=== PATIENT | female | born 1955 | race African-American/Black ===

== ENCOUNTER → 2020-12-08 07:43 | Outpatient (REF) | payer OTHER, SELFPAY ==
--- NOTE | 2020-12-08 07:52 | CA_ITS ---
Transthoracic Echocardiogram Patient (Last, First, Middle): Ignacia Abdul, Gender: Female Date of : 1955 Age: 65 Procedure Date: 12/08/2020 Procedure Type: Transthoracic Echocardiogram Location: OP Height: 167.64 cm Weight: 115.21 kg BSA: 2.21 m2 Heart Rate: bpm BP: 120 / 80 mmHg Hris Developer: GERALDINE Referring MD: Angel Glasgow MD Symptoms: I48.0 PAF Study Quality: Fair/contrast ECG Rhythm: Sinus Conclusions: - The left ventricular systolic function is normal. The visually estimated ejection fraction is between 60-65%. - There is mild calcification of the aortic valve. - There is mild tricuspid valve regurgitation. - Mild pulmonary hypertension is present. Findings Procedure Information Contrast agent, definity, is being given per protocol without apparent complications. Left Ventricle Normal left ventricular cavity size. There is normal left ventricular wall thickness. The left ventricular systolic function is normal. The visually estimated ejection fraction is between 60-65%. There is no evidence of regional wall motion abnormalities. Diastolic function is normal for age. Right Ventricle Normal right ventricular cavity size and systolic function. Atria The left atrium is normal in size. The right atrium is normal in size. Aortic Valve There is a normal trileaflet aortic valve. There is mild calcification of the aortic valve. There is no aortic valve stenosis. There is no aortic valve regurgitation. Mitral Valve The mitral valve appears normal. There is no mitral valve regurgitation. There is no mitral valve stenosis. Pulmonic Valve The pulmonic valve was not well visualized. Tricuspid Valve The tricuspid valve was not well visualized. There is mild tricuspid valve regurgitation. The right ventricular systolic pressure is 47 mmHg. Mild pulmonary hypertension is present. Great Vessels The aortic annulus, sinuses of valsalva, and asc aorta are normal in size. Venous The inferior vena cava was not well visualized. Pericardium/Pleural There is no evidence of pericardial effusion. Prior Study Comparison No prior study available for comparison. Measurements 2D Linear Measurements IVSd: 0.98 0.6-0.9/0.6-1.0 cm LVIDd: 4.35 3.9-5.3/4.2-5.9 cm LVIDd Index: 1.97 2.4-3.2/2.2-3.1 cm/m2 LVIDs: 2.60 2.0-3.6 cm LVPWd: 1.00 0.7-1.1 cm Ao Root: 2.80 2.1-3.5 cm LA Diam: 3.60 2.7-3.8/3.0-4.0 cm LAIDs Index: 1.63 1.5-2.3 cm/m2 LV Mass: 177.55 67-162/88-224 g LV Mass Index: 80.34 43-95/49-115 g/m2 LVOT Diam: 2.00 3.0+(-)1.3 cm Mitral Valve MV Pk E: 0.78 MV PK A: 0.68 MV Decel Time: 287.00 E/A: 1.10 E'Lateral: 6.09 E'Medial: 6.64 E/E' Med: 11.70 E/E' Lat: 12.80 PHT: 84.00 MVA PHT: 2.62 Decel Hunt: 2.70 Aortic Valve AoV Pk Albino: 1.10 AoV Mn Albino: 0.84 AoV VTI: 0.25 AoV Pk Grad: 5.00 Aov Mn Grad: 3.00 GIANCARLO Cont.VTI: 3.11 LVOT LVOT Pk Albino: 0.86 LVOT Mn Albino: 0.56 LVOT VTI: 0.25 LVOT Pk Grad: 3.00 LVOT Mn Grad: 1.00 LVOT Diam: 2.00 LVOT Area: 3.14 Diastolic Function MV Pk E: 0.78 MV Pk A: 0.68 E/A: 1.10 E'Medial: 6.64 E/E' Med: 11.70 E' Laterial: 6.09 E/E' Lat: 12.80 Tricuspid Valve TR Pk Albino: 3.31 TR Pk Grad: 44.00 RA Press: 3.00 RVSP: 47.00 Great Vessels Aorta Ao Root-2D: 2.80 2.0-3.7 cm Ao Asc: 2.90 2.1-3.4 cm Ao Arch: 2.50 Updated in Other Vendor System with Status of Final Jose Angel Mackey MD electronically signed on 12/09/2020 11:59:24 AM with status of Final
== END ==
LOC: HO.CARD 07:43
PROVIDERS: Visit Provider Internal Medicine Cardiovascular Disease
DX: I48.0 Paroxysmal atrial fibrillation (principal)
CPT/HCPCS: 93306; Q9957

== ENCOUNTER 2024-09-17 14:01 | Outpatient (AMB) | payer MEDICARE, MEDICAID, SELFPAY ==
--- NOTE | 2024-09-17 14:04 | A.OFFPC_ITS ---
Vital Signs 09/17/24 14:05 Height 5 ft 4 in Weight 280 lb BMI 48.1 BP 130/70 Blood Pressure Location Lt brachial Position Sitting Pulse 48 L Pulse Source Pulse Oximeter Temp 96.9 F Temp Source Temporal Artery Scan Pulse Oximetry (%) 86 L Oxygen Delivery Method Nasal Cannula Intake Visit Reasons: establish care Dr Butler Intake Note: Patient is a new patient here to establish care for DM, Chronic respiratory failure, Depression, Insomnia, Constipation, HLD, Hyper-hypo glycemia and Dysphagia . Transferring care from Dr Arreguin ([facility]). Medical records have been requested and have not received. 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 ] melatonin 10 mg PO BEDTIME PRN ondansetron 4 mg PO Q8H PRN Tobacco use date assessed: 09/17/24 Fall risk assessment: No Falls in past year Last assessed Fall Risk: 09/17/24 Dental Screening Dental Screen Date: 09/17/24 Did you have a dental visit in the last 12 months?: Yes Did you have a dental problem in the last 6 months where you did not have access to dental care?: No Was dental information given to patient?: Patient has dentist (Dentures) HPI establish care Dr Butler HPI Details 69-year-old female coming to the office for the 1st time. Presenting with concerns primarily revolving around the management of her diabetes mellitus and worsening sleep disorder. She has a history of insulin- dependent diabetes mellitus requiring modification of her sliding-scale insulin regimen due to changes made during hospitalization. Depression is noted, significantly affecting her sleep pattern, compounded by difficulty maintaining regular use of sleep aids such as eye masks and medication like melatonin and trazodone. 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 Aspiration issues due to swallowing difficulties require consideration, necessitating evaluation with a barium swallow and dietary modification to a pureed diet. Physical symptoms such as syncope and muscle atrophy further complicate her health management plan. 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 1. Little interest or pleasure in doing things: not at all 2. Feeling down, depressed, or hopeless: several days 3. Trouble falling or staying asleep, or sleeping too much: nearly every day 4. Feeling tired or having little energy: nearly every day 5. Poor appetite or overeating: several days 6. Feeling bad about yourself - or that you are a failure or have let yourself or your family down: several days 7. Trouble concentrating on things, such as reading the newspaper or watching television: several days 8. Moving or speaking so slowly that other people could have noticed. Or the opposite - being so fidgety or restless that you have been moving around a lot more than usual: several days 9. Thoughts that you would be better off or of hurting yourself in some way: several days Total score: 12 Depression Screening Interpretation: Positive Depression Screening Follow-up: Existing condition and In treatment Depression Screening Done: Yes Source: Developed by Drs. Nestor Langston, Mahnaz Whelan, Sina White and colleagues, with an educational brad from [employer]. Thrive Questionnaire Date Thrive assessed: 09/17/24 I am a: Parent/Caregiver What is your living situation today?: I have a steady place to live Within the past 12 months, did the food you bought not last and you didn't have the money to get more?: Never true Within the past 12 months, did you worry whether your food would run out before you got money to buy more?: Never true Do you have trouble paying for medicines?: I choose not to answer this question Do you have trouble getting transportation to medical appointments?: Yes Do you have trouble paying your heating and electricity bill?: Yes Do you have trouble taking care of your child, family member or friend?: No Do you have trouble with day-to-day activities such as bathing, preparing meals, shopping, managing finances, etc.?: Yes Are you currently unemployed and looking for a job?: Yes Are you interested in more education?: No Please select the resources that you would like help with: None Currently or been in a relationship where the following occur: I choose not to answer THRIVE Score: 2 AUDIT C Alcohol Use Questionnaire (AUDIT-C) 1. How often do you have a drink containing alcohol?: Never Total Score: 0 JAMIE-7 AMB Questionnaire JAMIE-7 Date JAMIE - 7 assessed: 09/17/24 Feeling nervous, anxious, or on edge: 1 = Several days Not being able to stop or control worryin = Several days Worrying too much about different things: 1 = Several days Trouble relaxin = Several days Being so restless that it is hard to sit still: 1 = Several days Becoming easily annoyed or irritable: 1 = Several days Feeling afraid as if something awful might happen: 1 = Several days Total JAMIE-7 score (0-4 normal; 5-9 mild; 10-14 moderate; 15-21 severe): 7 Source: Developed by Drs. Nestor Langston, Mahnaz Whelan, Sina White and colleagues, with an educational brad from [employer]. JAMIE-7 Assessment Billing JAMIE-7 Assessment Tool: JAMIE-7 Assessment 20722 Review of Systems Const Denies body aches, Denies chills, Denies fever(s), Denies headache(s) and Denies poor appetite Eyes Reports no additional complaints ENT Reports dysphagia, Denies dizziness, Denies headache(s) and Denies odynophagia Card Denies chest pain, Denies lightheadedness and Reports dyspnea Resp Denies cough and Reports dyspnea GI Denies abdominal pain, Reports constipation, Reports dysphagia, Denies diarrhea, Denies nausea, Denies odynophagia and Denies vomiting Reports no additional complaints Musc Reports no additional complaints and Denies abnormal gait Skin/Breast Reports system reviewed and no additional complaints, except as documented Neuro Denies abnormal gait, Denies dizziness and Denies headache(s) Psych Reports no additional complaints Physical exam (Primary Care) Vital Signs: Last Vital Signs Temp 96.9 F 09/17/24 14:05 Pulse 48 L 09/17/24 14:05 BP 130/70 09/17/24 14:05 Pulse Ox 86 L 09/17/24 14:05 Oxygen Delivery Method Nasal Cannula 09/17/24 14:05 BMI result Body Mass Index 48.1 Tobacco/Smoking Status: Tobacco use Status Tobacco use date assessed 09/17/24 09/17/24 14:07 Patient Tobacco Use Status Never used Tobacco 09/17/24 14:07 e-Cigarette/Vaping Use Never Used 09/17/24 14:07 PHQ-9: PHQ-9 Score PHQ-9: Total score 12 09/18/24 09:47 Depression Screening Interpretation: Positive Depression Screening Follow-up: Existing condition and In treatment Thrive Assessment: Date of Thrive Assessment Date Thrive assessed 09/17/24 09/17/24 14:07 Currently or been in a relationship where the following occur: I choose not to answer Advance Care Planning discussion: Completed/Scanned Date of discussion: 09/18/24 Who was present: patient, myself and 2 staff members Forms completed: MOLST Time spent: 1-15 minutes, not on file Actual minutes spent: 5 Const General: cooperative, healthy appearing, comfortable and no acute distress Orientation/consciousness: patient oriented x3 HENMT Head: Yes normocephalic Ears: hearing grossly normal bilaterally General nose exam: Normal external nose present Eyes General: appearance normal, both eyes and all related structures Conjunctivae: conjunctivae normal Neck Neck: Yes full ROM and Yes no lymphadenopathy Resp Effort & Inspection: normal respiratory effort Auscultation: clear to auscultation bilaterally, no crackles, no rales, no rhonchi and no wheezes Cardio Rate: regular rate Rhythm: regular rhythm Skin General skin exam: no rashes or lesions noted Neuro General: patient oriented x3 Gait exam (Neuro): Normal gait present Extrem General: Yes normal to inspection, Yes full ROM and No edema Psych Affect: normal affect Attitude: cooperative Insight: Good insight present (Psych) Judgement: Good judgement present (Psych) Results AMB Hemoglobin A1c AMB Hemoglobin A1c 6.5 % Last Edit by NANCIE Cuello on 09/17/24 14:38 Results Reviewed Results Reviewed: Laboratory Last Values Hgb A1c (Clinic) 6.5 % (4.0-6.0) H 09/17/24 14:31 Coding Level of Care Code New Pt Level 4 (68770) Diagnoses Constipation K59.00 Hyperlipidemia E78.5 Dysphagia R13.10 Chronic respiratory failure J96.10 Insomnia G47.00 Depression F32.A Diabetes mellitus E11.9 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 Continue to use laxatives as needed for constipation. (2) Hyperlipidemia: Code(s): E78.5 - Hyperlipidemia, unspecified Category: Medical Plan: Avoid foods that are high in cholesterol such as red meat, fried foods, eggs and baked goods. Triglyceride goal of less than 150 and LDL goal of less than 100. Continue on atorvastatin 40. Ordered for updated blood work (3) Dysphagia: Code(s): R13.10 - Dysphagia, unspecified Category: Medical Plan: Patient having chronic dysphagia has been worsening over the last several months. Engineer Systems states she is on a pureed diet at home requesting barium swallow. 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 Continue to follow with pulmonology and supplemental oxygen at this time (5) Insomnia: Code(s): G47.00 - Insomnia, unspecified Category: Medical Plan: Patient having insomnia recommend increase in melatonin 10 mg nightly and follow up with psychiatrist. (6) Depression: Code(s): F32.A - Depression, unspecified Category: Medical Plan: Currently following with a psychiatrist who is handling her psych medications. Continue to follow with psych declines counselor today. (7) Diabetes mellitus: Code(s): E11.9 - Type 2 diabetes mellitus without complications Category: Medical Plan: Decrease the amount of carbohydrates such as pasta, bread, rice, and potatoes and limit the amount of sweets. Although fruits are generally healthy they should be eaten in moderation as they are still high in sugar. Hemoglobin A1c goal of less than 7%. A1c at goal today continue on current medication regimen. Adjust sliding scale insulin dose to start at 200 BGL at request of class c truck driver as the patient has fluctuating blood sugars and increase to 200 will prevent lows (8) Hemiplegia of nondominant side due to acute cerebrovascular accident (CVA): Comment: about 2020 Code(s): I63.9 - Cerebral infarction, unspecified; G81.90 - Hemiplegia, unspecified affecting unspecified side Category: Medical Plan: Patient had CVA many years ago as result has hemiplegia the left side. Currently ambulates using a power wheelchair. Continue to follow with neurologist. (9) Afib: Code(s): I48.91 - Unspecified atrial fibrillation Category: Medical Plan: Currently on rate control with carvedilol and anticoagulated with apixaban. Continue to follow with residential collections's Plan For this patient, I have planned to adjust the insulin regimen to commence at 200 mg/dL to help better control blood glucose levels, avoiding unnecessary low insulin coverages. Sleep management will be refined with an increased melatonin dose, with further trazodone modifications contingent upon psychiatric evaluations. A barium swallow has been ordered to evaluate and mitigate aspiration risks effectively. Referrals to specialists in gastroenterology and podiatry will address other health maintenance needs. Prescriptions for essential medications and devices, including Zofran and compression stockings, have been sent to the pharmacy, targeting specific symptomatic concerns. Additionally, a follow-up in three months will be utilized to assess A1c levels, medication effects, and overall well-being. Additionally we completed the patient's MOLST form in the office today. Each prompt was explained in detail to the patient and she made her selections independently and without coercion. She has a good understanding of the implications of her decisions and has the capacity to make these decisions on her own. The forms were completed and signed today and scanned into her chart. This note was constructed using voice recognition software. While every effort has been made to ensure accuracy and co founder, still areas may have been included sometimes these areas may affect the content or meeting of the given symptoms. Total time spent caring for the patient today was 30 minutes. This includes time spent before the visit reviewing the chart, time spent during the visit, and time spent after the visit and documentation. Patient was informed and verbally consented to the use of an ambient scribe for clinic note documentation during this visit. 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 Referral Z12.4 - Encounter for screening for malignant neoplasm of cervix Gastroenterology Referral R13.10 - Dysphagia, unspecified, Z12.11 - Encounter for screening for malignant neoplasm of colon Medications: New ondansetron 4 mg PO Q8H PRN 10 tabs 0RF nausea and vomiting blood sugar diagnostic (Contour Next Test Strips) As directed to check blood sugars TID 100 ea 2RF fluoxetine 20 mg PO DAILY 30 caps 0RF fluoxetine 40 mg PO DAILY 30 caps 0RF trazodone 100 mg PO BEDTIME 30 tabs 0RF sodium phosphates 19-7 gram/118 mL (Fleet Enema) 118 mL FL DAILY PRN 133 mL 0RF constipation cholecalciferol (vitamin D3) 125 mcg PO DAILY 30 tabs 0RF furosemide 20 mg PO DAILY 30 tabs 0RF losartan 50 mg PO DAILY 30 tabs 0RF omeprazole 20 mg PO DAILY 30 tabs 0RF albuterol sulfate 90 mcg/actuation 2 puffs inhalation BID PRN 8.5 grams 0RF shortness of breath or wheezing umeclidinium-vilanterol 62.5-25 mcg/actuation (Anoro Ellipta) 1 inh inhalation DAILY 60 ea 0RF melatonin 10 mg PO BEDTIME PRN 90 caps 0RF sleep [compression stockings] As directed. 1 ea 0RF carvedilol must administer with a meal/food 25 mg PO BID 60 tabs 0RF magnesium hydroxide (Milk Of Magnesia Concentrated) 5 mL PO BEDTIME PRN 1,000 mL 0RF constipation bisacodyl 10 mg FL DAILY PRN 30 ea 0RF constipation atorvastatin 40 mg PO BEDTIME 30 tabs 0RF apixaban (Eliquis) 5 mg PO BID 60 tabs 0RF alum-mag hydroxide-simeth 200-200-20 mg/5 mL (Yamini-Lanta) administer between meals and at bedtime 30 mL PO QID PRN 3,000 mL 0RF indigestion insulin lispro (Humalog KwikPen (U-100) Insulin) 1 sliding scale dose subcut USEASDIRECTD 15 mL 0RF insulin glargine (Lantus Solostar U-100 Insulin) 30 units (0.3 mL) subcut BEDTIME 15 mL 0RF polyethylene glycol 3350 17 grams PO DAILY 238 grams 0RF dextrose (Dex4 Glucose) prn 2x daily/ 15 mins apart 33 grams PO BID 198 grams 0RF acetaminophen ER (Tylenol 8 Hour) 650 mg PO Q6H PRN 120 tabs 0RF pain sennosides (senna) 17.2 mg (2 x 8.6 mg) PO BEDTIME 60 tabs 0RF dulaglutide (Trulicity) 4.5 mg (0.5 mL) subcut QWEEK 2 mL 0RF albuterol sulfate 2.5 mg (3 mL) inhalation Q4-6H PRN 75 mL 0RF shortness of breath or wheezing
[2024-09-17 14:05] VITALS: BP 130/70; PULSE 48; TEMP 36.1; O2SAT 86; BMI 48.1
== END 2024-09-17 15:03 | disposition home or self-care (01) ==
LOC: HO.HMCH 14:02
PROVIDERS: PCP Internal Medicine
DX: E11.9 Type 2 diabetes mellitus without complications (principal)

== ENCOUNTER → 2024-09-17 14:01 | Outpatient (BNVA) | payer MEDICARE, MEDICAID, SELFPAY | PROVIDERS: PCP Internal Medicine | DX: K59.00 Constipation, unspecified (principal); E78.5 Hyperlipidemia, unspecified; R13.10 Dysphagia, unspecified; E11.9 Type 2 diabetes mellitus without complications; F32.A Depression, unspecified; J96.10 Chronic respiratory failure, unspecified whether with hypoxia or hypercapnia; I63.9 Cerebral infarction, unspecified | CPT/HCPCS: 83036; 96127; 99202 ==

== ENCOUNTER 2024-10-17 11:54 | Outpatient (REF) | payer MEDICARE, MEDICAID, SELFPAY ==
[2024-10-17 12:06] LABS: Appearance Urine Clear; Color Urine Yellow; Glucose Urine UA Negative (Negative); Leukocyte Esterase Urine Large (3+) (Negative); Nitrite Urine Negative (Negative); PH 5.5 (5.0-9.0); Specific Gravity - Urine 1.015 (1.005-1.025); UMIC TRIGGER UACC YES; Urine Blood Small (1+) (Negative); Urine Ketones Negative (Negative); Urine Protein Negative (Neg-Trace)
[2024-10-17 12:16] LABS: Bacteria Urine Trace (None Seen); Hyaline Casts Urine 0-2 /LPF (0-2); Squamous Epithelial Cell Urine 0-2 /HPF (0-2); UACC Culture Trigger YES; WBC Urine 21-50 /HPF (0-5)
--- OUTSIDE RECORDS SUMMARY | 2024-10-17 14:21 | XMS_ITS | Clinical Summary ---
Author Organization [address] [facility] Address [address] [place] [address] Phone Care Team Providers Care Bottom Finisher Name Role Phone Bettie Espinal MD Primary Care Provider Social History Tobacco Use Types Packs/Day Years Used Date Smoking Tobacco: Never Assessed Comments Unknown Sex and Gender Information Value Date Recorded Sex Assigned at Not on file Legal Sex Female 6:08 AM EST Gender Identity Not on file Sexual Orientation Not on file Plan of Treatment Health Maintenance Due Date Last Done Comments Breast Cancer Screening 1955 Diabetes: Annual GFR (Glomer ular Filtration Rate) 1955 Diabetes: Annual Foot Exam 01/16/1964 Diabetes: Annual Retina Eye Exam 01/16/1964 DTaP,Tdap,and Td Vaccines (1 - Tdap) 1973 Pneumococcal Vaccine: 50+ Ye ars (1 of 2 - PCV) 1973 Zoster Vaccines (1 of 2) 01/16/2004 RSV Immunization Adult Patie nts (1 - Risk 60-74 years 1-dose series) 2014 Cholesterol Screening (Lipid Panel) 05/30/2022 Colorectal Cancer Screening: Colonoscopy 05/30/2022 Depression Screening 05/30/2022 Falls Risk Assessment 05/30/2022 Hepatitis C Screening 05/30/2022 Medicare Annual Wellness Visit 05/30/2022 Osteoporosis Screening (Bone Density Screening) 05/30/2022 Social Influencers of Health Screening 05/30/2022 COVID-19 Vaccine ( - 2023-2 5 season) 2024 Diabetes: Annual Urine Albumin-Creatinine Ratio (uACR) 08/20/2024 Diabetes: Blood Sugar Contro l Test (HGBA1C) 08/20/2024 Influenza Vaccine (Season Ended) 2025 HIB Vaccines Aged Out No longer eligi ble based on patient's age to complete this topic HPV Vaccines Aged Out No longer eligi ble based on patient's age to complete this topic Hepatitis A Vaccines Aged Out No long er eligible based on patient's age to complete this topic Hepatitis B Vaccines Aged Out No long er eligible based on patient's age to complete this topic IPV Vaccines Aged Out No longer eligi ble based on patient's age to complete this topic MMR Vaccines Aged Out No longer eligi ble based on patient's age to complete this topic Meningococcal ACWY Vaccine Aged Out N o longer eligible based on patient's age to complete this topic Meningococcal B Vaccine Aged Out No l onger eligible based on patient's age to complete this topic RSV Immunization Patients Un jarvis 20 months Aged Out No longer eligible b ased on patient's age to complete this topic Varicella Vaccines Aged Out No longer eligible based on patient's age to complete this topic Insurance MEDICARE [place]ICAID - [place] Care Teams Bottom Finisher Relationship Specialty Start Date End Date Bettie Espinal MD [address] [place] [phone] PCP - General Internal Medicine 08/20/24
== END 2024-10-17 11:55 | disposition home or self-care (01) ==
LOC: HO.LNP 11:54
PROVIDERS: Visit Provider Internal Medicine
DX: R39.9 Unspecified symptoms and signs involving the genitourinary system (principal)
CPT/HCPCS: 81001; 81003; 87086

== ENCOUNTER 2024-12-13 12:22 | Emergency (ER) | payer MEDICARE, MEDICAID, SELFPAY ==
--- NOTE | ~2024-12-13 | XR_ITS ---
EXAMINATION: XR KNEE, LEFT CLINICAL INFORMATION: fall, left knee pain COMPARISON: None available. TECHNIQUE: Four views of the left knee. FINDINGS: Elongated oval ossification is present in the soft tissues medial to the medial femoral condyle. There is osteopenia. There are marginal osteophytes involving patella, trochlea, and the tibial plateau. There is possibly an ossified intra-articular body in the posterior medial joint. There is mild narrowing of the medial joint space. There is no joint effusion. Vascular calcifications are evident in the distal femoral and proximal popliteal artery. XR/XR knee LT 4V IMPRESSION: Mild osteoarthritis. Osteopenia. Possible ossified intra-articular body in the posterior medial joint compartment. MCL ossification is most consistent with changes related to a remote sprain. Electronically signed by: Geovanni Whiting MD 12/13/2024 01:34 PM EDT
[2024-12-13 12:45] VITALS: BP 132/84; BP 181/83; PULSE 68; PULSE 80; RESP 16; TEMP 36.7; O2SAT 95; O2SAT 96; BMI 48.5
--- NOTE | 2024-12-13 12:55 | ED_ITS ---
HPI - Extremity Injury (Lower) General Chief Complaint: Extremity Injury, Lower Stated Complaint: LLE PAIN OR DAYS,FROM [facility] PER EMS Time Seen by Provider: 12/13/24 12:36 Source: patient, family (Caregiver) and EMS Mode of arrival: EMS Limitations: no limitations History of Present Illness ED Provider: DR. 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 Patient declined any other injuries and only complaint is left knee pain. No fever, no chills. Related Data Home Medications ?Medication ?Instructions ?Recorded ?Confirmed dulaglutide 4.5 mg/0.5 mL 4.5 mg subcut FR 12/13/24 subcutaneous pen injector (Trulicity) Previous Rx's ?Medication ?Instructions ?Recorded albuterol sulfate 2.5 mg/3 mL 2.5 mg (3 mL) inhalation Q4-6H PRN 09/17/24 (0.083 %) solution for nebulization shortness of breat h or wheezing #75 mL albuterol sulfate 90 mcg/actuation 2 puff inhalation B ID PRN 09/17/24 aerosol inhaler shortness of breath or wheez ing #8.5 grams blood sugar diagnostic (Contour #100 ea 09/17/24 Next Test Strips) compression stockings #1 ea 09/17/24 fluoxetine 20 mg capsule 20 mg PO DAILY #30 caps 08/26 10/19 fluoxetine 40 mg capsule 40 mg PO DAILY #30 caps 08/26 10/19 insulin lispro 100 unit/mL 1 sliding scale dose subcut 09/17/24 subcutaneous pen (Humalog KwikPen USEASDIRECTD #15 mL (U-100) Insulin) melatonin 10 mg capsule 10 mg PO BEDTIME PRN sleep # 90 caps 09/17/24 ondansetron 4 mg disintegrating 4 mg PO Q8H PRN nausea and 09/17/24 tablet vomiting #10 tabs trazodone 100 mg tablet 100 mg PO BEDTIME #30 tabs 0 09/17/24 umeclidinium 62.5 mcg-vilanterol 1 inh inhalation ANTONIO Y #60 ea 09/17/24 25 mcg/actuation powdr for inhalation (Anoro Ellipta) acetaminophen 650 mg 650 mg PO Q6H PRN pain #120 tabs 09/18/24 tablet,extended release (Tylenol 8 Hour) aluminum-mag hydroxide-simethicone 30 ml PO QID PRN in digestion 09/18/24 200 mg-200 mg-20 mg/5 mL oral susp #3,000 mL (Yamini-Lanta) bisacodyl 10 mg rectal suppository 10 mg [place] DAILY PRN constipation 09/18/24 #30 ea cholecalciferol (vitamin D3) 125 125 mcg PO DAILY #30 tabs 09/18/24 mcg (5,000 unit) tablet magnesium hydroxide 2,400 mg/10 mL 5 ml PO BEDTIME PRN constipation 09/18/24 oral suspension (Milk Of Magnesia #1,000 mL Concentrated) omeprazole 20 mg tablet,delayed 20 mg PO DAILY #30 tab s 09/18/24 release polyethylene glycol 3350 17 17 g PO DAILY #238 grams 0 09/18/24 gram/dose oral powder sodium phosphates 19 gram-7 118 ml [place] DAILY PRN consti pation 09/18/24 gram/118 mL enema (Fleet Enema) #133 mL dextrose 15 gram/32 mL oral gel 15 g (32 mL) PO Q15M P RN 09/19/24 packet (TRUEplus Glucose) hypoglycemia #32 mL insulin degludec 100 unit/mL (3 30 unit (0.3 mL) subcu t BEDTIME 09/19/24 mL) subcutaneous pen (Tresiba #15 mL FlexTouch U-100 insulin) STRAIGHT Catheter Fr 14 #1 ea 10/16/24 Prevail Bariatric briefs #300 ea 11/30/24 apixaban 5 mg tablet (Eliquis) 5 mg PO BID #60 tabs atorvastatin 40 mg tablet 40 mg PO BEDTIME #30 tabs carvedilol 25 mg tablet 25 mg PO BID #60 tabs furosemide 20 mg tablet 20 mg PO DAILY #30 tabs 11/25 01/18 losartan 50 mg tablet 50 mg PO DAILY #30 tabs 11/25 01/18 sennosides 8.6 mg tablet (senna) 17.2 mg (2 x 8.6 mg) PO BEDTIME 12/11/24 #60 tabs Allergies Allergy/AdvReac Type Severity Reaction Status Date / Time lisinopril Allergy Intermediate Unknown Verified 12/13/24 12:50 oxycodone Allergy Intermediate Unknown Verified 12/13/24 12:50 Review of Systems 2 Review of Systems: All other systems are reviewed and are negative Constitutional: Reports as per HPI and Reports no additional constitutional complaints Eyes: Reports as per HPI and Reports no additional eye complaints Reports system reviewed and no additional complaints, except as documented Cardiovascular: Reports as per HPI and Reports no additional cardiovascular complaints Respiratory: Reports as per HPI and Reports no additional respiratory complaints Gastrointestinal: Reports as per HPI and Reports no additional gastrointestinal complaints Genitourinary: Reports no additional female genitourinary complaints Musculoskeletal: Reports no additional musculoskeletal complaints Skin/Breast: Reports system reviewed and no additional complaints, except as docu Psychiatric: Reports no additional psychiatric complaints Endocrine: Reports no additional endocrine complaints Hematologic/Lymphatic: Reports no additional hematologic/lymphatic complaints Allergic/Immunologic: Reports no additional allergic/immunologic complaints Reports system reviewed and no additional complaints, except as documented and Reports Abnormal speech present [facility] Past Medical History Medical History Left knee pain Surgical History History of cholecystectomy History of hysterectomy Social History Social History Housing: Other (correction) Unable to assess alcohol history related to: Refusing to respond Alcohol intake: never Patient Tobacco Use Status: Never used Tobacco e-Cigarette/Vaping Use: Never Used Second Hand Smoke Exposure: No Advance Directives: Yes Advance Directives Information Provided: No Advance Directives on File: No Do you have a plan to hurt others: No Plan service: No Current occupational status: disabled Cognitive needs: Yes (wheelchair) Hearing needs: No Vision needs: Yes (Reading Glasses) Physical Exam 2 Vital Signs: Vital Signs: Last Vital Signs Temp 98.0 F 12/13/24 12:45 Pulse 68 12/13/24 12:45 Resp 16 12/13/24 12:45 BP 181/83 H 12/13/24 12:45 Pulse Ox 96 12/13/24 12:45 O2 Del Method Nasal Cannula 12/13/24 12:45 Oxygen Flow Rate 2.5 12/13/24 12:45 BMI result Body Mass Index 48.5 Vital signs have been reviewed and appear to be correct. Blood pressure elevated. Heart rate normal. Respiratory rate normal. Temperature normal. Oxygen saturation normal. Appearance: Alert. Oriented X3. No acute distress. Head: Normal external exam. Normocephalic. Atraumatic. No Lem[place] signs noted. No raccoon eyes noted Eyes: PERRLA. EOMI. Conjunctiva and sclera normal. Eyelids normal. ENT: TM's Normal. Pharynx normal. Uvula midline. Moist mucous membranes. No trismus noted. No drooling noted. No muffled voice noted. Neck: Normal inspection. Neck supple. FROM. No adenopathy. Thyroid Normal. No meningeal signs. No neck mass noted. CVS: Normal heart rate and rhythm. Heart sound normal. No murmurs noted. Pulses normal throughout. Respiratory: No respiratory distress. Painless inspiration. Breath sounds normal. No wheezes/rales/rhonchi noted. Chest nontender. No accessory muscle usage noted or decreased air movement noted. Abdomen: Soft and nontender. Bowel sounds normal in all 4 quadrants. No distention noted. No organomegaly noted. No visible injury noted. Back: No CVA tenderness. Full range of motion noted. Skin: Skin warm and dry. Normal skin color. Normal skin turgor. No rashes/lesions/lacerations noted. Extremities: Left lower extremity: No knee deformity, limited range of motion because of body habitus, no redness, no joint effusion. Neuro: Oriented X 3. Cranial nerve exam: II-XII are grossly intact No motor deficit. No sensory deficit. Reflexes normal. Course Reevaluation(s) Reevaluation #1: Sent from custodial for left knee pain after a fall, x-ray is questioning ossification of MCL, requested by the custodial to check blood and UA which is unremarkable, will continue Tylenol/ibuprofen if needed and follow-up with ortho. Time: 14:54 Medical Decision Making Differential Diagnosis Differential Diagnoses: The differential diagnosis associated with the presentation includes (Electrolyte derangement, anemia, UTI, left knee injury, left ligaments injury.) Admission/Observation Consideration of admission/observation: Escalation of care including admission/observation considered Lab Data MDM Lab Attestation statement: I reviewed the patient's lab results. 12/13/24 13:34 12/13/24 13:34 Labs: Lab Results 12/13/24 12/13/24 Range/Units 13:34 14:27 WBC 5.4 (4.8-10.8) X10*3/uL RBC 3.84 L (4.20-5.50) X10*6/uL Hgb 10.5 L (12.0-16.0) g/dl Hct 32.7 L (37.0-47.0) % MCV 85.2 (80.0-98.0) fL MCH 27.3 (27.0-33.0) pg MCHC 32.1 (31.0-35.0) g/dl RDW 14.7 (11.0-16.0) % Plt Count 241 (160-400) X10*3/uL MPV 9.8 (9.4-12.3) fL Immature Gran % (Auto) 0.2 (0.0-0.4) % Neut % (Auto) 45.7 (45-73) % Lymph % (Auto) 44.1 H (20-40) % [place] % (Auto) 7.2 (2-11) % Eos % (Auto) 2.4 (0-4) % Baso % (Auto) 0.4 (0-2) % Lymph # (Auto) 2.4 (1.2-4.9) X10*3/uL [place] # (Auto) 0.4 (0.1-1.2) X10*3/uL Eos # (Auto) 0.1 (0.0-0.4) X10*3/uL Baso # (Auto) 0.0 (0.0-0.2) X10*3/uL Abs Immat Gran (auto) 0.01 (0.00-0.03) X10*3/uL Absolute Neuts (auto) 2.5 (2.0-8.3) x10*3/uL Absolute Nucleated RBC 0.000 (0.0-0.012) X10*3/uL Nucleated RBC % (auto) 0.0 (0.0-0.2) /100WBC Sodium 144 (135-145) mmol/L Potassium 4.0 (3.3-5.1) mmol/L Chloride 105 (96-108) mmol/L Carbon Dioxide 32 H (22-29) mmol/L Anion Gap 11 L (12-20) BUN 17 H (9-16) mg/dL Creatinine 0.81 (0.5-1.4) mg/dL Estim Creat Clear Calc 91.8 Estimated GFR > 60 Random Glucose 122 H (60-115) mg/dL Calcium 9.2 (8.4-10.2) mg/dL Urine Color Yellow Urine Appearance Clear Urine pH 8.0 (5.0-9.0) Ur Specific [place] 1.015 (1.005-1.025) Urine Protein Negative (Neg-Trace) mg/dL Urine Glucose (UA) Negative (Negative) mg/dL Urine Ketones Negative (Negative) mg/dL Urine Blood Negative (Negative) Urine Nitrite Negative (Negative) Ur Leukocyte Esterase Negative (Negative) Independent Interpretation I performed an independent interpretation of an: Plain X-Ray (Left knee x-ray: Osteopenia. Possible ossified intra-articular body in the posterior medial joint compartment. MCL ossification is most consistent with changes related to a remote sprain.) Radiology Impression Discussion of test interpretation with radiology: I have reviewed the radiologist's reading. Discharge Plan Discharge Clinical Impression: Arthralgia of knee, left Patient Disposition: Home, Self-Care Instructions: Arthralgia (ED) Additional Instructions: Continue with ibuprofen/Tylenol if needed for pain and follow-up with orthopedic. Prescriptions: No Action TRUEplus Glucose 15 gram/32 mL gel in packet 15 g PO Q15M PRN (Reason: hypoglycemia) Qty: 32 0RF Rx Instructions: until symptoms of low blood sugar are controlled insulin degludec [Tresiba FlexTouch U-100] 100 unit/mL (3 mL) insulin pen 30 unit subcut BEDTIME Qty: 15 1RF (DME) STRAIGHT Catheter Fr 14 See Rx Instructions .Route .MEDSUPPLY Qty: 1 0RF Rx Instructions: As directed (DME) Prevail Bariatric briefs Size A PV-107 See Rx Instructions .Route .MEDSUPPLY Qty: 300 11RF Rx Instructions: As directed carvedilol 25 mg tablet 25 mg PO BID Qty: 60 0RF Rx Instructions: must administer with a meal/food Eliquis 5 mg tablet 5 mg PO BID Qty: 60 0RF atorvastatin 40 mg tablet 40 mg PO BEDTIME Qty: 30 0RF furosemide 20 mg tablet 20 mg PO DAILY Qty: 30 0RF losartan 50 mg tablet 50 mg PO DAILY Qty: 30 0RF sennosides [senna] 8.6 mg tablet 17.2 mg PO BEDTIME Qty: 60 0RF Trulicity 4.5 mg/0.5 mL pen injector 4.5 mg subcut FR melatonin 10 mg capsule 10 mg PO BEDTIME PRN (Reason: sleep) Qty: 90 0RF (DME) compression stockings See Rx Instructions .Route .MEDSUPPLY Qty: 1 0RF Rx Instructions: As directed. ondansetron 4 mg tablet,disintegrating 4 mg PO Q8H PRN (Reason: nausea and vomiting) Qty: 10 0RF (DME) Contour Next Test Strips Strip See Rx Instructions .Route Qty: 100 2RF Rx Instructions: As directed to check blood sugars TID fluoxetine 20 mg capsule 20 mg PO DAILY Qty: 30 0RF fluoxetine 40 mg capsule 40 mg PO DAILY Qty: 30 0RF trazodone 100 mg tablet 100 mg PO BEDTIME Qty: 30 0RF insulin lispro [Humalog KwikPen Insulin] 100 unit/mL insulin pen 1 sliding scale dose subcut USEASDIRECTD Qty: 15 0RF albuterol sulfate 2.5 mg /3 mL (0.083 %) solution for nebulization 2.5 mg inhalation Q4-6H PRN (Reason: shortness of breath or wheezing) Qty: 75 0RF albuterol sulfate 90 mcg/actuation HFA aerosol inhaler 2 puff inhalation BID PRN (Reason: shortness of breath or wheezing) Qty: 8.5 0RF Anoro Ellipta 62.5-25 mcg/actuation blister with device 1 inh inhalation DAILY Qty: 60 0RF acetaminophen [Tylenol 8 Hour] 650 mg tablet extended release 650 mg PO Q6H PRN (Reason: pain) Qty: 120 0RF alum-mag hydroxide-simeth [Yamini-Lanta] 200-200-20 mg/5 mL suspension 30 ml PO QID PRN (Reason: indigestion) Qty: 3000 0RF Rx Instructions: administer between meals and at bedtime bisacodyl 10 mg suppository 10 mg [place] DAILY PRN (Reason: constipation) Qty: 30 0RF cholecalciferol (vitamin D3) 125 mcg (5,000 unit) tablet 125 mcg PO DAILY Qty: 30 0RF magnesium hydroxide [Milk Of Magnesia Concentrated] 2,400 mg/10 mL suspension 5 ml PO BEDTIME PRN (Reason: constipation) Qty: 1000 0RF omeprazole 20 mg tablet,delayed release (DR/EC) 20 mg PO DAILY Qty: 30 0RF polyethylene glycol 3350 17 gram/dose powder 17 g PO DAILY Qty: 238 0RF Fleet Enema 19-7 gram/118 mL enema 118 ml [place] DAILY PRN (Reason: constipation) Qty: 133 0RF Referrals: Po,Karol Rain MD [Primary Care Provider, Internal Medicine] Shar Bang MD [Physician, Orthopedics] Print Language: Unable To Collect
[2024-12-13 13:39] LABS: MANUAL DIFF FLAG NO
[2024-12-13 13:40] LABS: Basophils Percent Auto 0.4 % (0-2); Eosinophils Absolute Auto 0.1 X10*3/uL (0.0-0.4); Eosinophils Percent Auto 2.4 % (0-4); Hematocrit 32.7 % (37.0-47.0); Hemoglobin 10.5 g/dl (12.0-16.0); Imm Gran Abs Auto 0.01 X10*3/uL (0.00-0.03); Imm Gran Pct Auto 0.2 % (0.0-0.4); Lymphocytes Absolute Auto 2.4 X10*3/uL (1.2-4.9); Lymphocytes Percent Auto 44.1 % (20-40); Mean Corpuscular HGB Conc 32.1 g/dl (31.0-35.0); Mean Corpuscular Hemoglobin 27.3 pg (27.0-33.0); Mean Corpuscular Volume 85.2 fL (80.0-98.0); Mean Platelet Volume 9.8 fL (9.4-12.3); Monocytes Absolute Auto 0.4 X10*3/uL (0.1-1.2); Monocytes Percent Auto 7.2 % (2-11); Neutrophils Absolute Auto 2.5 x10*3/uL (2.0-8.3); Neutrophils Percent Auto 45.7 % (45-73); Platelet Count 241 X10*3/uL (160-400); Red Blood Count 3.84 X10*6/uL (4.20-5.50); Red Cell Distribution Width 14.7 % (11.0-16.0); White Blood Count 5.4 X10*3/uL (4.8-10.8)
--- NOTE | 2024-12-13 13:51 | PHA.MEDREC ---
Pharmacy Consult ? Medication Reconciliation Pharmacy has completed the medication reconciliation. Utilized med list to confirm, patient states she takes her Trulicity on Fridays and last had it last week.
[2024-12-13 13:55] LABS: Anion Gap 11 (12-20); Blood Urea Nitrogen 17 mg/dL (9-16); Calcium 9.2 mg/dL (8.4-10.2); Carbon Dioxide 32 mmol/L (22-29); Chloride 105 mmol/L (96-108); Creatinine Clr Calc Pharmacy 91.8; Estimated Glomerular Filt Rate > 60; Glucose Random 122 mg/dL (60-115); Sodium 144 mmol/L (135-145)
[2024-12-13 14:36] LABS: Appearance Urine Clear; Color Urine Yellow; Glucose Urine UA Negative (Negative); Leukocyte Esterase Urine Negative (Negative); Nitrite Urine Negative (Negative); Specific Gravity - Urine 1.015 (1.005-1.025); Urine Blood Negative (Negative); Urine Ketones Negative (Negative); Urine Protein Negative (Neg-Trace)
[2024-12-13 15:20] VITALS: BP 178/76; PULSE 72; RESP 16; TEMP 36.8; O2SAT 96
[2024-12-13 16:40] VITALS: BP 180/78; PULSE 68; RESP 16; TEMP 36.7; O2SAT 96
== END 2024-12-13 16:41 | disposition home or self-care (01) ==
PROVIDERS: Emergency Provider Emergency Medicine; PCP Internal Medicine
DX: M17.12 Unilateral primary osteoarthritis, left knee (principal); M25.562 Pain in left knee; Z79.899 Other long term (current) drug therapy
CPT/HCPCS: 36415; 73564; 80048; 81003; 85025; 99283; 99284

== ENCOUNTER → 2024-12-13 12:54 | Outpatient (BNV) | payer MEDICARE, MEDICAID, SELFPAY | PROVIDERS: Emergency Provider Emergency Medicine; PCP Internal Medicine; Visit Provider Radiology Diagnostic Radiology | DX: M25.562 Pain in left knee (principal); M85.862 Other specified disorders of bone density and structure, left lower leg | CPT/HCPCS: 73564 ==

== ENCOUNTER 2024-12-18 11:45 | Outpatient (AMB) | payer MEDICARE, MEDICAID, SELFPAY ==
--- NOTE | 2024-12-18 11:48 | MHC.PC.OV ---
Vital Signs 12/18/24 11:49 12/18/24 13:14 Height 5 ft 4 in BMI Reason not done Patient refused/unable BP 110/62 Blood Pressure Location Lt brachial Position Sitting Pulse 68 Pulse Source Pulse Oximeter Temp 97.3 F Temp Source Temporal Artery Scan Pulse Oximetry (%) 79 L 90 L Oxygen Delivery Method Nasal Cannula Nasal Cannula Intake Visit Reasons: f/u DM Intake Note: Patient is here to follow up on DM. 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 Accompanied by: Staff Allergies lisinopril Allergy (Intermediate, Verified 12/18/24 12:00) Unknown oxycodone Allergy (Intermediate, Verified 12/18/24 12:00) Unknown Medication List - Last Reconciled 12/18/24 by Deysi aWrd PA-C acetaminophen ER (Tylenol 8 Hour) 650 mg PO Q6H PRN albuterol sulfate 90 mcg/actuation 2 puffs inhalation BID PRN albuterol sulfate 2.5 mg (3 mL) inhalation Q4-6H PRN alum-mag hydroxide-simeth 200-200-20 mg/5 mL (Yamini-Lanta) 30 mL PO QID PRN apixaban (Eliquis) 5 mg PO BID atorvastatin 40 mg PO BEDTIME bisacodyl 10 mg WV DAILY PRN blood sugar diagnostic (Contour Next Test Strips) As directed to check blood sugars TID carvedilol 25 mg PO BID cholecalciferol (vitamin D3) 125 mcg PO DAILY [compression stockings As directed. ] dextrose (TRUEplus Glucose) 15 grams (32 mL) PO Q15M PRN dulaglutide (Trulicity) 4.5 mg subcut FR fluoxetine 20 mg PO DAILY fluoxetine 40 mg PO DAILY furosemide 20 mg PO DAILY insulin degludec (Tresiba FlexTouch U-100 insulin) 30 units (0.3 mL) subcut BEDTIME insulin lispro (Humalog KwikPen (U-100) Insulin) 1 sliding scale dose subcut USEASDIRECTD losartan 50 mg PO DAILY magnesium hydroxide (Milk Of Magnesia Concentrated) 5 mL PO BEDTIME PRN melatonin 10 mg PO BEDTIME PRN omeprazole 20 mg PO DAILY ondansetron 4 mg PO Q8H PRN polyethylene glycol 3350 17 grams PO DAILY [Prevail Bariatric briefs As directed] sennosides (senna) 17.2 mg (2 x 8.6 mg) PO BEDTIME sodium phosphates 19-7 gram/118 mL (Fleet Enema) 118 mL WV DAILY PRN [STRAIGHT Catheter Fr 14 As directed] trazodone 100 mg PO BEDTIME umeclidinium-vilanterol 62.5-25 mcg/actuation (Anoro Ellipta) 1 inh inhalation DAILY Tobacco use date assessed: 12/18/24 Fall risk assessment: No Falls in past year Last assessed Fall Risk: 12/18/24 Dental Screening Dental Screen Date: 09/17/24 HPI f/u DM HPI Details 69-year-old female with past medical history of diabetes mellitus, depression, insomnia, hyperlipidemia, atrial fibrillation and history of CVA last seen 08/2024 coming in for follow up. Presenting with diabetes mellitus management. The patient's A1c level has increased to 7.6, indicating poor glycemic control. Previously, the A1c was 6.5, and adjustments were made to the insulin sliding scale due to hypoglycemic episodes. The patient resides in a fdc where nurses administer medications, and there have been issues with blood sugar management. The patient reports improvement in constipation symptoms. Current sliding scale: 200-250 2 units 251-299 4 units 300-350 10 units 351- 12 units PFSH Medical History Left knee pain Surgical History History of cholecystectomy History of hysterectomy Social History Housing: Other (assisted) Unable to assess alcohol history related to: Refusing to respond Alcohol intake: never Patient Tobacco Use Status: Never used Tobacco e-Cigarette/Vaping Use: Never Used Second Hand Smoke Exposure: No service: No Current occupational status: disabled Cognitive needs: Yes (wheelchair) Hearing needs: No Vision needs: Yes (Reading Glasses) Questionnaire Thrive Questionnaire Date Thrive assessed: 09/17/24 I am a: Parent/Caregiver What is your living situation today?: I have a steady place to live Within the past 12 months, did the food you bought not last and you didn't have the money to get more?: Never true Within the past 12 months, did you worry whether your food would run out before you got money to buy more?: Never true Do you have trouble paying for medicines?: I choose not to answer this question Do you have trouble getting transportation to medical appointments?: Yes Do you have trouble paying your heating and electricity bill?: Yes Do you have trouble taking care of your child, family member or friend?: No Do you have trouble with day-to-day activities such as bathing, preparing meals, shopping, managing finances, etc.?: Yes Are you currently unemployed and looking for a job?: Yes Are you interested in more education?: No Please select the resources that you would like help with: None Currently or been in a relationship where the following occur: I choose not to answer THRIVE Score: 2 JAMIE-7 AMB Questionnaire JAMIE-7 Date JAMIE - 7 assessed: 09/17/24 Source: Developed by Drs. Nestor Langston, Mahnaz Whelan, Sina White and colleagues, with an educational brad from [employer]. Review of Systems Const Denies fever(s), Denies headache(s) and Denies poor appetite Eyes Reports no additional complaints ENT Reports dysphagia, Denies dizziness and Denies headache(s) Card Denies chest pain, Denies syncope, Denies lightheadedness and Reports dyspnea (Chronic) Resp Denies cough and Reports dyspnea (Chronic) GI Denies constipation, Reports dysphagia, Denies nausea and Denies vomiting Reports no additional complaints Musc Reports no additional complaints and Denies abnormal gait Skin/Breast Reports system reviewed and no additional complaints, except as documented Neuro Denies abnormal gait, Denies dizziness, Denies syncope and Denies headache(s) Psych Reports no additional complaints Physical exam (Primary Care) Vital Signs: Last Vital Signs Temp 97.3 F 12/18/24 11:49 Pulse 68 12/18/24 11:49 BP 110/62 12/18/24 11:49 Pulse Ox 79 L 12/18/24 11:49 Oxygen Delivery Method Nasal Cannula 12/18/24 11:49 Tobacco/Smoking Status: Tobacco use Status Tobacco use date assessed 12/18/24 12/18/24 12:00 Patient Tobacco Use Status Never used Tobacco 12/18/24 12:00 e-Cigarette/Vaping Use Never Used 12/18/24 12:00 Thrive Assessment: Date of Thrive Assessment Date Thrive assessed 09/17/24 12/18/24 12:00 Currently or been in a relationship where the following occur: I choose not to answer Const General: cooperative, healthy appearing, comfortable and no acute distress Orientation/consciousness: patient oriented x3 HENMT Head: Yes normocephalic Ears: hearing grossly normal bilaterally General nose exam: Normal external nose present Eyes General: appearance normal, both eyes and all related structures Conjunctivae: conjunctivae normal Neck Neck: Yes full ROM and Yes no lymphadenopathy Resp Effort & Inspection: normal respiratory effort Auscultation: clear to auscultation bilaterally, no crackles, no rales, no rhonchi and no wheezes Cardio Rate: regular rate Rhythm: regular rhythm Skin General skin exam: no rashes or lesions noted Neuro General: patient oriented x3 Gait exam (Neuro): Normal gait present Extrem General: Yes normal to inspection, Yes full ROM and No edema Psych Affect: normal affect Attitude: cooperative Insight: Good insight present (Psych) Judgement: Good judgement present (Psych) Results AMB Hemoglobin A1c AMB Hemoglobin A1c 7.6 % Last Edit by NANCIE Cuello on 12/18/24 12:01 Results Reviewed Results Reviewed: Laboratory Last Values Hgb A1c (Clinic) 7.6 % (4.0-6.0) H 12/18/24 11:48 Coding Level of Care Code Est Pt Level 3 (58805) Diagnoses Constipation K59.00 Hyperlipidemia E78.5 Dysphagia R13.10 Chronic respiratory failure J96.10 Diabetes mellitus E11.9 Afib I48.91 Assessment & Plan Assessment & Plan (1) Constipation: Code(s): K59.00 - Constipation, unspecified Category: Medical Plan: Three rules of constipation; increase water intake, increase fiber intake and activity as tolerated. Continue to use laxatives as needed for constipation. (2) Hyperlipidemia: Code(s): E78.5 - Hyperlipidemia, unspecified Category: Medical Plan: Avoid foods that are high in cholesterol such as red meat, fried foods, eggs and baked goods. Triglyceride goal of less than 150 and LDL goal of less than 100. Continue on atorvastatin 40. Reminded about blood work (3) Dysphagia: Code(s): R13.10 - Dysphagia, unspecified Category: Medical Plan: Patient having chronic dysphagia has been worsening over the last several months. Melter Operator states she is on a pureed diet at home requesting barium swallow. Barium swallow ordered at last visit in his scheduled for the next month. (4) Chronic respiratory failure: Code(s): J96.10 - Chronic respiratory failure, unspecified whether with hypoxia or hypercapnia Category: Medical Plan: Patient has doctor of nurse anesthesia and is on multiple inhalers. Continue to follow with pulmonology and supplemental oxygen at this time (5) Diabetes mellitus: Code(s): E11.9 - Type 2 diabetes mellitus without complications Category: Medical Plan: Decrease the amount of carbohydrates such as pasta, bread, rice, and potatoes and limit the amount of sweets. Although fruits are generally healthy they should be eaten in moderation as they are still high in sugar. Hemoglobin A1c goal of less than 7%. A1c above goal today 7.6%. Plan to adjust sliding scale of insulin. Reach out if patient is having lows and follow up next month with Dr. Luke Childers sliding scale: 200-250 4 units 251-299 6 units 300-350 12 units 351- 14 units (6) Afib: Code(s): I48.91 - Unspecified atrial fibrillation Category: Medical Plan: Currently on rate control with carvedilol and anticoagulated with apixaban. Continue to follow with package lift operator's Plan This note was constructed using voice recognition software. While every effort has been made to ensure accuracy and professor of environmental engineering, still areas may have been included sometimes these areas may affect the content or meeting of the given symptoms. Total time spent caring for the patient today was 30 minutes. This includes time spent before the visit reviewing the chart, time spent during the visit, and time spent after the visit and documentation. Patient was informed and verbally consented to the use of an ambient scribe for clinic note documentation during this visit. Orders: Orders Lipid Panel Today E78.00 - Pure hypercholesterolemia, unspecified AMB Hemoglobin A1c Today E11.9 - Type 2 diabetes mellitus without complications
[2024-12-18 11:49] VITALS: BP 110/62; PULSE 68; TEMP 36.3; O2SAT 79
[2024-12-18 13:14] VITALS: O2SAT 90
--- OUTSIDE RECORDS SUMMARY | 2024-12-18 13:27 | XMS_ITS | Clinical Summary ---
Author Organization [address] [place] [address] Address [address] [place] [address] Phone Care Team Providers Care Stereotype Finisher Name Role Phone Bettie Espinal MD Primary Care Provider [phone] Allergies Active Allergy Reactions Criticality Noted Date Comments Lisinopril 12/12/2024 Oxycodone 12/12/2024 Encounters Date Type Department Care Team Description 12/12/2024 1:45 PM EDT Consult Orthopedic Surgery [facility] [address] [facility] [address] [place] [id number] Ismael Montaño DPM Controlled type 2 diabetes with neuropathy (CMS/HCC V24, CMS/HCC V28) (Primary Dx); Arthritis of both feet; PVD (peripheral vascular disease) ([facility] V24); Dermatophytosis, nail from Last 3 Months Social History Tobacco Use Types Packs/Day Years Used Date Smoking Tobacco: Never Assessed Comments Unknown Sex and Gender Information Value Date Recorded Sex Assigned at Not on file Legal Sex Female 6:08 AM EST Gender Identity Not on file Sexual Orientation Not on file Plan of Treatment Health Maintenance Due Date Last Done Comments Breast Cancer Screening 1955 Diabetes: Annual GFR (Glomerular Filtration Rate) 1955 Diabetes: Annual Foot Exam 01/16/1964 Diabetes: Annual Retina Eye Exam 01/16/1964 Zoster Vaccines (1 of 2) 01/16/2004 RSV Immunization Adult Patients (1 - Risk 60-74 years 1-dose series) 2014 DTaP,Tdap,and Td Vaccines (2 - Tdap) 06/10/2020 06/10/2010 Pneumococcal Vaccine: 50+ Years (2 of 2 - PCV) 09/26/2021 09/26/2020, 04/23/2009 Cholesterol Screening (Lipid Panel) 05/30/2022 Colorectal Cancer Screening: Colonoscopy 05/30/2022 Depression Screening 05/30/2022 Falls Risk Assessment 05/30/2022 Hepatitis C Screening 05/30/2022 Medicare Annual Wellness Visit 05/30/2022 Osteoporosis Screening (Bone Density Screening) 05/30/2022 Social Influencers of Health Screening 05/30/2022 COVID-19 Vaccine ( season) 2024 11/19/2021, 04/16/2021, 07/23/2020, Additional history exists Diabetes: Annual Urine Albumin-Creatinine Ratio (uACR) 12/13/2024 Diabetes: Blood Sugar Control Test (HGBA1C) 12/13/2024 Hypertension/CHF/CAD Annual BMP Blood Test 12/13/2024 Influenza Vaccine Completed 05/12/2024, , 04/07/2021, Additional history exists HIB Vaccines Aged Out No longer eligi [...] to complete this topic RSV Immunization Patients Under 20 months Aged Out No longer eligible based on patient's age to complete this topic Varicella Vaccines Aged Out No longer eligible based on patient's age to complete this topic Insurance MEDICARE [place]ICAID - [place] Care Teams Stereotype Finisher Relationship Specialty Start Date End Date Bettie Espinal MD [address] [id number] PCP - General Internal Medicine 08/20/24
== END 2024-12-18 12:28 | disposition home or self-care (01) ==
PROVIDERS: PCP Internal Medicine
DX: E11.69 Type 2 diabetes mellitus with other specified complication (principal); J96.10 Chronic respiratory failure, unspecified whether with hypoxia or hypercapnia; I48.91 Unspecified atrial fibrillation; K59.00 Constipation, unspecified; E78.5 Hyperlipidemia, unspecified; R13.10 Dysphagia, unspecified

== ENCOUNTER → 2024-12-18 11:45 | Outpatient (BNVA) | payer MEDICARE, MEDICAID, SELFPAY | PROVIDERS: PCP Internal Medicine | DX: E11.9 Type 2 diabetes mellitus without complications (principal); K59.00 Constipation, unspecified; E78.5 Hyperlipidemia, unspecified; R13.10 Dysphagia, unspecified; J96.10 Chronic respiratory failure, unspecified whether with hypoxia or hypercapnia; I48.91 Unspecified atrial fibrillation | CPT/HCPCS: 83036; 99212 ==

== ENCOUNTER 2025-02-19 14:07 | Outpatient (AMB) | payer MEDICARE, MEDICAID, SELFPAY ==
--- NOTE | 2025-02-19 14:10 | MHC.OFFVIS ---
Vital Signs 02/19/25 14:15 BMI Reason not done Patient refused/unable BP 120/57 L Blood Pressure Location Lt brachial Position Sitting Pulse 62 Intake Visit Reasons: [place] screening/Dysphagia Intake Note: Ignacia presents in the office as a new patient for a colo screening and dysphagia. CC: She states that she does not have issues with her swallowing or reflux but does have constipation and diarrhea. Allergies lisinopril Allergy (Intermediate, Verified 12/18/24 12:00) Unknown oxycodone Allergy (Intermediate, Verified 12/18/24 12:00) Unknown HPI HPI [place] screening/Dysphagia: Details: 70-year-old female here for initial evaluation of dysphagia and also is apparently due for colonoscopy screening. She is referred by Deysi Ward. PMX Morbid obesity Chronic respiratory failure AFib History of CVA with hemiplegia High cholesterol Constipation Diabetes Depression Dysphagia on pureed diet at home question neurologic * SURGICAL HISTORY Cholecystectomy Hysterectomy * ALLERGIES Lisinopril Oxycodone * [place] LABS: Laboratory Tests 12/13/24 12/18/24 13:34 11:48 WBC 5.4 Hgb 10.5 L Hct 32.7 L MCV 85.2 MCH 27.3 Plt Count 241 Estimated GFR > 60 Hgb A1c (Clinic) 7.6 H TODAY'S VISIT NEEDS CHEM PANEL PATIENT IS HERE FROM A SHELTER APPARENTLY, can not speak for herself, and the staff is not helpful with a medical history. She has COPD and LALITA not noted in her PCP chart, gleamed from [facility] records. SHe also has chronic resp failure, so will need pulm clearance from [facility] before procedure. No anes or sed problems. She had a strong echo at [facility] and has LALITA on CPap and COPD. he has a very high BMI and may be high risk - we discussed that she may need to have this done at [facility] if her risk is too high. No ID problem. Her sister of CRC at age 52. [facility] Medical History (Updated 02/19/25 @ 17:10 by YOUSIF Gale) Afib Left knee pain Surgical History History of cholecystectomy History of hysterectomy Social History Housing: Other ([facility]) Unable to assess alcohol history related to: Refusing to respond Alcohol intake: never Patient Tobacco Use Status: Never used Tobacco e-Cigarette/Vaping Use: Never Used Second Hand Smoke Exposure: No service: No Current occupational status: disabled Cognitive needs: Yes (wheelchair) Hearing needs: No Vision needs: Yes (Reading Glasses) Review of Systems Const Denies fatigue, Denies fever(s), Denies night sweats, Denies poor appetite and Denies weight loss ENT Reports Normal hearing present, Denies dental pain, Reports dysphagia (Neurologic has purees), Denies hearing loss, Denies mouth pain, Denies odynophagia, Denies throat swelling, Denies tongue swelling and Reports other (Dentition adequate) Card Reports no additional complaints and Reports dyspnea on exertion Resp Reports dyspnea on exertion GI Details: Denies abdominal pain, Denies melena, Denies bloating, Denies hematochezia, Reports constipation, Denies GI cramping, Reports dysphagia (Neurologic has purees), Denies excessive flatus, Denies early satiety, Denies heartburn, Denies diarrhea, Reports loose stools, Denies nausea, Denies odynophagia, Denies vomiting and Denies hematemesis Musc Reports abnormal gait, Reports arthralgias and Reports numbness Skin/Breast Denies pruritus, Denies lesions, Denies rash and Denies jaundice Neuro Reports Normal hearing present, Denies Abnormal speech present, Reports abnormal gait, Reports focal weakness and Reports numbness Endo Denies fatigue Aller/Immun Denies throat swelling and Denies tongue swelling Physical Exam Vital Signs: Last Vital Signs Pulse 62 02/19/25 14:15 BP 120/57 L 02/19/25 14:15 Const General: cooperative, no acute distress, well developed and well groomed Nutritional Appearance: well nourished and obese morbidly obese Orientation/consciousness: oriented to person, oriented to place and oriented to time Limitations: No language barrier, physical limitations, wheelchair and other limitations HEENT Head: Yes normocephalic and Yes atraumatic Eyes General: appearance normal, both eyes and all related structures Pupils: Equal, round and reactive pupils present Neck Neck: Yes normal visual inspection and Yes no lymphadenopathy Thyroid: Thyroid normal Resp Effort & Inspection: normal respiratory effort and able to speak in complete sentences Auscultation: clear to auscultation bilaterally Cardio Rate: regular rate Rhythm: regular rhythm Heart sounds: Normal, physiologic split S2 sound present Peripheral pulses: radial pulses present and posterior tibial pulses present GI Inspection: No distended, Yes Abdominal panniculus present and Yes obesity Palpation (GI): Soft to palpation, nontender, no guarding, not rigid and No hepatosplenomegaly present Percussion: Yes normal to percussion Auscultation: normal bowel sounds Rectal Exam - Female: deferred Abdomen image:  1. Surgical scars 2. Skin General skin exam: no rashes or lesions noted, turgor normal, skin not dry, no jaundice, No spider nevi and no striae Rashes: no rashes Nails: normal Neuro General: oriented to person, oriented to place and oriented to time Cranial nerves: Yes Equal, round and reactive pupils present and Yes Normal hearing present Speech: No Abnormal speech present Extrem General: No clubbing, No cyanosis and Yes edema Psych Appearance: grossly normal and well kempt Mental Status: other Speech and movement: Slowed speech present (Psych) Affect: normal affect Attitude: cooperative Thought process: Other thought process findings present Thought content: other Insight: Poor insight present (Psych) Judgement: Poor judgement present (Psych) Assessment & Plan Assessment & Plan (1) Pre-op examination: Code(s): Z01.818 - Encounter for other preprocedural examination Category: Medical (2) Dysphagia: Code(s): R13.10 - Dysphagia, unspecified Category: Medical (3) Morbid obesity with BMI of 45.0-49.9, adult: Code(s): E66.01 - Morbid (severe) obesity due to excess calories; Z68.42 - Body mass index [BMI] 45.0-49.9, adult Category: Medical (4) Family history of colon cancer: Comment: Sister age 52 Code(s): Z80.0 - Family history of malignant neoplasm of digestive organs Category: Medical (5) Chronic anticoagulation: Comment: On Eliquis Code(s): Z79.01 - terminal gauger (current) use of anticoagulants Category: Medical (6) LALITA (obstructive sleep apnea): Code(s): G47.33 - Obstructive sleep apnea (adult) (pediatric) Category: Medical (7) COPD (chronic obstructive pulmonary disease): Code(s): J44.9 - Chronic obstructive pulmonary disease, unspecified Category: Medical (8) Supplemental oxygen dependent: Code(s): Z99.81 - Dependence on supplemental oxygen Category: Medical (9) Wheelchair dependent: Code(s): Z99.3 - Dependence on wheelchair Category: Medical (10) Expressive aphasia: Code(s): R47.01 - Aphasia Category: Medical (11) Chronic respiratory failure: Code(s): J96.10 - Chronic respiratory failure, unspecified whether with hypoxia or hypercapnia Category: Medical Plan NEEDS CHEM PANEL PATIENT IS HERE FROM A SHELTER APPARENTLY, can not speak for herself, and the staff is not helpful with a medical history. She has COPD and LALITA not noted in her PCP chart, gleamed from [facility] records. SHe also has chronic resp failure, so will need pulm clearance from [facility] before procedure. No anes or sed problems. She had a strong echo at [facility] and has LALITA on CPap and COPD. he has a very high BMI and may be high risk - we discussed that she may need to have this done at [facility] if her risk is too high. No ID problem. Her sister of CRC at age 52. Orders: Orders Comprehensive Met. Panel Today E66.01 - Morbid (severe) obesity due to excess calories, R13.10 - Dysphagia, unspecified, Z01.818 - Encounter for other preprocedural examination, Z68.42 - Body mass index [BMI] 45.0-49.9, adult Colonoscopy - GI Use Only Today Z80.0 - Family history of malignant neoplasm of digestive organs Medications: New peg 3350-electrolytes 236-22.74-6.74 -5.86 gram (Golytely) until fecal effluent is clear; do not exceed a total volume of 2,000 mL 240 mL PO Q10M 4,000 mL 0RF 1 day Z12.11 - Encounter for screening for malignant neoplasm of colon bisacodyl (Dulcolax (bisacodyl)) 10 mg (2 x 5 mg) PO BEDTIME 4 tabs 0RF 2 days Coding Level of Care Code New Pt Level 3 (12730) Diagnoses Pre-op examination Z01.818 Dysphagia R13.10 Morbid obesity with BMI of 45.0-49.9, adult E66.01; Z68.42 Family history of colon cancer Z80.0 Chronic anticoagulation Z79.01 LALITA (obstructive sleep apnea) G47.33 COPD (chronic obstructive pulmonary disease) J44.9 Supplemental oxygen dependent Z99.81 Wheelchair dependent Z99.3 Expressive aphasia R47.01 Chronic respiratory failure J96.10
[2025-02-19 14:15] VITALS: BP 120/57; PULSE 62
--- OUTSIDE RECORDS SUMMARY | 2025-02-19 15:07 | XMS_ITS | Clinical Summary ---
Author Organization [address] [facility] Address [address] [place] [address] Phone Care Team Providers Care [employer] Name Role Phone Bettie Espinal MD Primary Care Provider [phone] Allergies Active Allergy Reactions Criticality Noted Date Comments Lisinopril 12/12/2024 Oxycodone 12/12/2024 Encounters Date Type Department Care Team Description 12/12/2024 1:45 PM EDT Consult Orthopedic [facility] [address] [id number] Ismael Montaño DPM Controlled type 2 diabetes with neuropathy (CMS/HCC V24, CMS/HCC V28) (Primary Dx); Arthritis of both feet; PVD (peripheral vascular disease) (CMS/HCC V24); Dermatophytosis, nail from Last 3 Months Social History Tobacco Use Types Packs/Day Years Used Date Smoking Tobacco: Never Assessed Comments Unknown Sex and Gender Information Value Date Recorded Sex Assigned at Not on file Legal Sex Female 6:08 AM EST Gender Identity Not on file Sexual Orientation Not on file Plan of Treatment Upcoming Encounters Date Type Department Care Team ([facility] st Contact Info) Description 04/11/2025 2:00 PM EDT Office Visit Orthopedic [facility] [address] [phone] Ismael Montaño DPM [address] [place] [address] Health Maintenance Due Date Last Done Comments [...] Panel) 05/30/2022 Colorectal Cancer Screening: Colonoscopy 05/30/2022 Falls Risk Assessment 05/30/2022 Hepatitis C Screening 05/30/2022 Medicare Annual Wellness Visit 05/30/2022 Osteoporosis Screening (Bone Density Screening) 05/30/2022 Social Influencers of Health Screening 05/30/2022 COVID-19 Vaccine ( season) 2024 11/19/2021, 04/16/2021, 07/23/2020, Additional history exists Depression Screening 06/27/2024 Diabetes: Annual Urine Albumin-Creatinine Ratio (uACR) 12/13/2024 Diabetes: Blood Sugar Control Test (HGBA1C) 12/13/2024 Hypertension/CHF/CAD Annual BMP Blood Test 12/13/2024 Influenza Vaccine (#1) 2025 , 05/18/2023, 04/07/2021, Additional history exists HIB Vaccines Aged [...] Insurance MEDICARE MEDICAID - [place] Care Teams Electrician W[employer] Relationship Specialty Start Date End Date Bettie Espinal MD [address] [place] [phone] PCP - General Internal Medicine 08/20/24
== END 2025-02-19 14:51 | disposition home or self-care (01) ==
LOC: HO.HGI 14:08
PROVIDERS: PCP Internal Medicine; Visit Provider Nurse Practitioner
DX: Z01.818 Encounter for other preprocedural examination (principal); Z12.11 Encounter for screening for malignant neoplasm of colon; Z80.0 Family history of malignant neoplasm of digestive organs; R13.10 Dysphagia, unspecified; Z79.01 Long term (current) use of anticoagulants; J44.9 Chronic obstructive pulmonary disease, unspecified; Z99.81 Dependence on supplemental oxygen; Z99.3 Dependence on wheelchair
CPT/HCPCS: 99203

== ENCOUNTER → 2025-02-19 14:07 | Outpatient (BNVA) | payer MEDICARE, MEDICAID, SELFPAY | PROVIDERS: PCP Internal Medicine; Visit Provider Nurse Practitioner | DX: Z01.818 Encounter for other preprocedural examination (principal); R13.10 Dysphagia, unspecified; E66.01 Morbid (severe) obesity due to excess calories; G47.33 Obstructive sleep apnea (adult) (pediatric); J44.9 Chronic obstructive pulmonary disease, unspecified; R47.01 Aphasia; J96.10 Chronic respiratory failure, unspecified whether with hypoxia or hypercapnia; Z79.01 Long term (current) use of anticoagulants; Z99.3 Dependence on wheelchair; Z80.0 Family history of malignant neoplasm of digestive organs; Z99.81 Dependence on supplemental oxygen; Z68.42 Body mass index [BMI] 45.0-49.9, adult | CPT/HCPCS: 99202 ==

== ENCOUNTER 2025-04-23 08:47 | Outpatient (REF) | payer MEDICARE, MEDICAID, SELFPAY ==
--- OUTSIDE RECORDS SUMMARY | 2025-04-24 09:37 | XMS_ITS | Clinical Summary ---
Author Organization [address] [facility] Address [address] [place] [address] Phone Care Team Providers Care Community Facilitator Name Role Phone Bettie Espinal MD Primary Care Provider [phone] Allergies Active Allergy Reactions Criticality Noted Date Comments Lisinopril 12/12/2024 Oxycodone 12/12/2024 Medications No known medications Encounters Date Type Department Care Team Description 04/11/2025 2:00 PM EDT Office Visit Orthopedic Surgery [facility] [address] [facility] [address] [place] [phone] Ismael Montaño DPM Controlled type 2 diabetes mellitus with diabetic polyneuropathy, without long-term current use of insulin (CMS/[facility] V24, CMS/HCC V28) (Primary Dx); PVD (peripheral vascular disease) ([facility] V24); Arthritis of both feet; Localized edema; [...] Insurance MEDICARE MEDICAID - [place] Care Teams Community Facilitator Relationship Specialty Start Date End Date Bettie Espinal MD [address] [place] [phone] PCP - General Internal Medicine 08/20/24
== END 2025-04-23 08:48 | disposition home or self-care (01) ==
LOC: HO.HOSX 08:47
PROVIDERS: Visit Provider Physician Assistant
DX: M17.12 Unilateral primary osteoarthritis, left knee (principal)
CPT/HCPCS: 20610; 99202; J0665; J1100; J2003

== ENCOUNTER 2025-04-23 13:35 | Outpatient (AMB) | payer MEDICARE, MEDICAID, SELFPAY ==
--- OUTSIDE RECORDS SUMMARY | 2025-04-17 23:59 | XMS_ITS | Continuity of Care Document ---
Author Organization [facility] Pulmonary M edicine Address [address] [address]- Care Team Providers Care Seater Grinder Name Role Phone Po Karol SAUER Primary Care Physician Encounter [facility] Date(s): 03/18/25 - 04/17/25 [facility] Pulmonary Medicine [address] [facility] [address] [place] [id number] Encounter Type: Triage Allergies, Adverse Reactions, Alerts Substance Criticality Severity Reaction Reaction Severity Status lisinopril cough Active Tylox ringing in ears Acti ve Lactose Active oxyCODONE Active Immunizations Given and Recorded Vaccine Date Status Refusal Reason influenza virus vaccine, inactivated 05/12/24 Give n influenza virus vaccine, inactivated 1 05/18/23 Gi chester influenza virus vaccine, inactivated 04/07/21 Mat rded influenza virus vaccine, inactivated 2 04/07/20 Gi chester influenza virus vaccine, inactivated 05/14/19 Give n influenza virus vaccine, inactivated 05/08/18 Give n influenza virus vaccine, inactivated 03/31/16 Give n influenza virus vaccine, inactivated 04/15/15 Give n influenza virus vaccine, inactivated 04/27/13 Give n influenza virus vaccine, inactivated 3 04/13/11 Gi chester influenza virus vaccine, inactivated 4 06/10/10 Gi chester influenza virus vaccine, inactivated 5 04/24/09 Gi chester influenza virus vaccine, inactivated 6 05/24/06 Gi chester SARS-CoV-2 (COVID-19) mRNA BNT-162b2 vac 11/19/21 Recorded SARS-CoV-2 (COVID-19) mRNA BNT-162b2 vac 04/16/21 Recorded SARS-CoV-2 (COVID-19) mRNA BNT-162b2 vac 07/23/20 Recorded SARS-CoV-2 (COVID-19) mRNA BNT-162b2 vac 07/02/20 Recorded pneumococcal 23-valent vaccine 09/26/20 Recorded pneumococcal 23-valent vaccine 7 04/23/09 Given diphtheria-tetanus toxoids (DT) 8 06/10/10 Given 1Result Comment: [facility] [id number] 2Early/Late Reason: Med Not Available 3Admin Note: VIS GIVEN 01/19/2011 4Admin Note: vis given vis date 02/03/2010 5Result Comment: unit # [id number] 6Admin Note: VIS GIVEN 7Result Comment: lot [id number] 05/27/10 8Admin Note: VIS GIVEN VIS DATE07/04 Medications 02 Supplies 02 Supplies, See Instructions, # 1 each, Refills 11, Tot. Refills 11, Maintenance, O2 supplies Dx, 11/13/24 2:43:00 PM EDT, Supply Start Date: 11/13/24 Status: Ordered Medication Dispense Status: Completed Quantity: 1.0 Unit: each Total Allowed Fills: 12 Fills Dispensed: 0 Adult pull-up diapers Size XL Adult pull-up diapers Size XL, See Instructions, # 120 application, Refills 11, Tot. Refills 11, Maintenance, Needs 4 diapers per day for Mixed urinary incontinence (N39.46. s/p cva , lower extremityweakness I63.9 r29.898 duration lifetime, 01/18/19 12:36:41 PM EDT, Compound Start Date: 01/18/19 Status: Ordered Medication Dispense Status: Completed Quantity: 120.0 Unit: application Total Allowed Fills: 12 Fills Dispensed: 0 Indications: Other specified urinary incontinence; Albuterol (Eqv-ProAir HFA) 90 mcg/inh inhalation aerosol 2 inhalation = 180 mcg, Inhalation, Every 4 hours, PRN as needed for shortness of breath or wheezing, j44.9, # 3 each, 3 Refills, Maintenance, 03/15/25 3:43:00 PM EDT, Aerosol, [place] - [id number], Partial fill upon patient request if the prescription is for a schedule II opioid drug., 2 inhalation Inhalation Every 4 hours,PRN:as needed for shortness of breath or wheezing,Instr:j44.9, 170, cm, 10/09/24 11:05:00 EDT, Height, 140, kg, 09/24/24 14:56:00 EDT, Dry Weight Start Date: 03/15/25 Status: Ordered Medication Dispense Status: Completed Quantity: 3.0 Unit: each Total Allowed Fills: 4 Fills Dispensed: 0 albuterol 0.083% inhalation solution See Instructions, USE 3ML VIA NEBULIZER EVERY 4 HOURS NEEDED FOR WHEEZING/SHORTNESS OF BREATH J44.9, # 150 mL, 3 Refills, Maintenance, 10/16/24 10:19:00 AM EDT, [facility]/pharmacy #[id number], j43.9, 170, cm, 10/09/24 11:05:00 EDT, Height, 140, kg, 09/24/24 14:56:00 EDT, Dry Weight Start Date: 10/16/24 Status: Ordered Medication Dispense Status: Completed Quantity: 150.0 Unit: mL Total Allowed Fills: 4 Fills Dispensed: 0 Indications: Emphysema, unspecified; Anoro Ellipta 62.5 mcg-25 mcg/inh inhalation powder 1 puffs, Inhalation, Daily, # 60 each, 4 Refills, Maintenance, 12/11/24 2:06:00 PM EDT, [id number], 30, INHALE 1 PUFF BY MOUTH DAILY, 170, cm, 10/09/24 11:05:00 EDT, Height, 140, kg, 09/24/24 14:56:00 EDT, Dry Weight Start Date: 12/11/24 Status: Ordered Medication Dispense Status: Completed Quantity: 60.0 Unit: each Total Allowed Fills: 1 Fills Dispensed: 0 atorvastatin 40 mg oral tablet 1 tablet = 40 mg, By Mouth, Daily, in the evening, 0 Refills, Maintenance, 12/07/22 7:55:00 AM EDT, Tablet, Partial fill upon patient request if the prescription is for a schedule II opioid drug. Start Date: 12/07/22 Status: Ordered Medication Dispense Status: Completed Total Allowed Fills: 1 Fills Dispensed: 0 bisacodyl 10 mg rectal suppository 1 supp = 10 mg, Rectally, prn, 0 Refills, Maintenance, 05/18/23 1:19:00 PM EST, Partial fill upon patient request if the prescription is for a schedule II opioid drug. Start Date: 05/18/23 Status: Ordered Medication Dispense Status: Completed Total Allowed Fills: 1 Fills Dispensed: 0 carvedilol 25 mg oral tablet 25 mg, 1, tablet, By Mouth, 2 times a day, # 180 tablet, Refills 3, Tot. Refills 3, Maintenance, 05/23/24 12:17:00 PM EST, Route to Pharmacy Electronically, [id number], Partial fill upon patient request if the prescription is for a schedule II opioid drug., 160, cm, 05/17/2415:48:00 EST, Height, 130.7, kg, 05/11/24 22:11:00 EST, Dry Weight Start Date: 05/23/24 Status: Ordered Medication Dispense Status: Completed Quantity: 180.0 Unit: tablet Total Allowed Fills: 4 Fills Dispensed: 0 change DME company from [employer] to [employer] [facility] [employer] [facility], See Instructions, # 1 each, Refills 0, Tot. Refills 0, Maintenance, SPO2? HR? O2? Activity ??87 82 RA Rest 84 94 RA Moving side to side 95 85 2L Rest 93 91 2L Moving side to side refill 02 tanks Patient did not want to perform arm exercises. commendations:?? Patient needs 2L continuously. Sp02 84% Dx Pneumonia, Hypoxia ??, 07/13/23 3:36:00 PM EST, Supply Start Date: 07/13/23 Status: Ordered Medication Dispense Status: Completed Quantity: 1.0 Unit: each Total Allowed Fills: 1 Fills Dispensed: 0 cholecalciferol 5000 intl units oral capsule 1 capsule = 125 mcg, By Mouth, Every 30 days, 0 Refills, Maintenance, 12/07/22 11:18:00 AM EDT, Capsule, Partial fill upon patient request if the prescription is for a schedule II opioid drug. Start Date: 12/07/22 Status: Ordered Medication Dispense Status: Completed Total Allowed Fills: 1 Fills Dispensed: 0 Durable Medical Equipment Maintenance, Oxygen 2 Liters continuous, 05/18/23 1:15:00 PM EST, Supply Start Date: 05/18/23 Status: Ordered Medication Dispense Status: Completed Total Allowed Fills: 1 Fills Dispensed: 0 Durable Medical Equipment Maintenance, Oxygen 2 Liters, 01/13/23 11:20:00 AM EDT, Supply Start Date: 01/13/23 Status: Ordered Medication Dispense Status: Completed Total Allowed Fills: 1 Fills Dispensed: 0 Eliquis 5 mg oral tablet 1 tablet = 5 mg, By Mouth, 2 times a day, 5 Refills, Maintenance, 12/07/22 7:55:00 AM EDT, Tablet, Partial fill upon patient request if the prescription is for a schedule II opioid drug. Start Date: 12/07/22 Status: Ordered Medication Dispense Status: Completed Total Allowed Fills: 1 Fills Dispensed: 0 Fleet Enema 1 each, Rectally, Once, PRN as needed for constipation, 0 Refills, Maintenance, 05/18/23 1:20:00 P[facility], Partial fill upon patient request if the prescription is for a schedule II opioid drug. Start Date: 05/18/23 Status: Ordered Medication Dispense Status: Completed Total Allowed Fills: 1 Fills Dispensed: 0 FLUoxetine 20 mg oral capsule 20 mg, 1, capsule, By Mouth, Daily, # 30 capsule, Refills 0, Maintenance, 03/29/25 2:51:00 PM EDT, Partial fill upon patient request if the prescription is for a schedule II opioid drug. Start Date: 03/29/25 Status: Ordered Medication Dispense Status: Completed Quantity: 30.0 Unit: capsule Total Allowed Fills: 1 Fills Dispensed: 0 FLUoxetine 20 mg oral tablet 1 tablet = 20 mg, By Mouth, Daily, Discontinue Fluoxetine capsules, # 30 tablet, 11 Refills, Maintenance, 09/27/19 10:48:00 AM EDT, Tablet, [facility]/pharmacy #[id number], 182, cm, 06/11/19 13:15:00 EST, Height, 121.4, kg, 06/10/19 18:35:00 EST, Dry Weight Start Date: 09/27/19 Status: Ordered Medication Dispense Status: Completed Quantity: 30.0 Unit: tablet Total Allowed Fills: 12 Fills Dispensed: 0 FLUoxetine 40 mg oral capsule 1 capsule = 40 mg, By Mouth, Daily, # 30 capsule, 0 Refills, Maintenance, 08/27/24 9:59:00 AM EST, Capsule, Partial fill upon patient request if the prescription is for a schedule II opioid drug. Start Date: 08/27/24 Status: Ordered Medication Dispense Status: Completed Quantity: 30.0 Unit: capsule Total Allowed Fills: 1 Fills Dispensed: 0 Freestyle Lite Lancets See Instructions, # 150 each, Refills 11, Tot. Refills 11, Maintenance, dx dm type 2 e11.65 check bs 4 x per day insulin dependent, 07/10/18 4:45:43 PM EST, Compound Start Date: 07/10/18 Status: Ordered Medication Dispense Status: Completed Quantity: 150.0 Unit: each Total Allowed Fills: 12 Fills Dispensed: 0 Freestyle Lite Test Strips See Instructions, # 150 each, Refills 11, Tot. Refills 11, Maintenance, dx dm type 2 e11.65 check bs 4 x per day insulin dependent, 07/10/18 4:45:43 PM EST, Compound Start Date: 07/10/18 Status: Ordered Medication Dispense Status: Completed Quantity: 150.0 Unit: each Total Allowed Fills: 12 Fills Dispensed: 0 Glucose Gel See Instructions, Maintenance, PRN 15gm 2x daily/15 min apart, 08/27/24 10:02:00 AM EST, Supply Start Date: 08/27/24 Status: Ordered Medication Dispense Status: Completed Total Allowed Fills: 1 Fills Dispensed: 0 HumaLOG KwikPen 100 units/mL injectable solution See Instructions, based on sliding scale 150-200- 2 units 201-249- 4 units 250-299- 6 units 300-3498 units 350-399- 10 units, # 15 mL, 2 Refills, Maintenance, 05/17/24 3:47:00 PM EST, Solution, [facility], Partial fill upon patient request if the prescription is for a schedule II opio id drug., 160, cm, 05/17/24 11:29:00 EST, Height, 130.7, kg, 05/11/24 22:11:00 EST, Dry Weight Start Date: 05/17/24 Status: Ordered Medication Dispense Status: Completed Quantity: 15.0 Unit: mL Total Allowed Fills: 3 Fills Dispensed: 0 Lantus Inj 0.3 mL = 30 units, Subcutaneous Injection, Daily at bedtime, 0 Refills, Maintenance, 09/06/24 11:14:00 AM EDT, Injection, Partial fill upon patient request if the prescription is for a schedule II opioid drug. Start Date: 09/06/24 Status: Ordered Medication Dispense Status: Completed Total Allowed Fills: 1 Fills Dispensed: 0 Lasix 20 mg oral tablet 20 mg, 1, tablet, By Mouth, Daily, # 30 tablet, Refills 0, Tot. Refills 0, Maintenance, 04/24/23 12:53:00 PM EDT, Route to Pharmacy Electronically, [facility], Partial fill upon patient request if the prescription is for a schedule II opioid drug., 165, cm, 04/24/23 12:21:00EDT, Height, 116.7, kg, 04/22/23 12:06:00 EDT, Dry Weight Start Date: 04/24/23 Status: Ordered Medication Dispense Status: Completed Quantity: 30.0 Unit: tablet Total Allowed Fills: 1 Fills Dispensed: 0 losartan 50 mg oral tablet 1 tablet = 50 mg, By Mouth, Daily, # 90 tablet, 0 Refills, Maintenance, 05/17/24 1:48:00 PM EST, Tablet, Partial fill upon patient request if the prescription is for a schedule II opioid drug. Start Date: 05/17/24 Status: Ordered Medication Dispense Status: Completed Quantity: 90.0 Unit: tablet Total Allowed Fills: 1 Fills Dispensed: 0 manual wheelchair manual wheelchair, See Instructions, # 1 each, Refills 0, Tot. Refills 0, Maintenance, For gait instability R26.8 secondary to stroke I63.50., 01/22/20 10:54:00 AM EDT, Supply Start Date: 01/22/20 Status: Ordered Medication Dispense Status: Completed Quantity: 1.0 Unit: each Total Allowed Fills: 1 Fills Dispensed: 0 melatonin 5 mg oral tablet 1 tablet = 5 mg, By Mouth, Daily at bedtime, PRN for insomnia, Maintenance, 12/07/22 12:30:00 PM EDT, Tablet, Partial fill upon patient request if the prescription is for a schedule II opioid drug. Start Date: 12/07/22 Status: Ordered Medication Dispense Status: Completed Total Allowed Fills: 1 Fills Dispensed: 0 Milk of Magnesia = 2,400 mg, By Mouth, prn if no BM x 3 days, 0 Refills, Maintenance, 05/18/23 1:18:00 PM EST, Partial fill upon patient request if the prescription is for a schedule II opioid drug. Start Date: 05/18/23 Status: Ordered Medication Dispense Status: Completed Total Allowed Fills: 1 Fills Dispensed: 0 MiraLax oral powder for reconstitution = 17 Gm, By Mouth, Daily, dissolve in water before taking, # 255 Gm, 1 Refills, Maintenance, 12/10/22 1:32:00 PM EDT, REC Powder, [facility]/pharmacy #[id number], 17 Gm By Mouth Daily,Instr:dissolve in water before taking, 168, cm, 12/10/22 5:11:00 EDT, Height, 116.7, kg, 12/07/22 12:33:00 EDT, Dry Weight Start Date: 12/10/22 Status: Ordered Medication Dispense Status: Completed Quantity: 255.0 Unit: g Total Allowed Fills: 2 Fills Dispensed: 0 Nebulizer/Compressor See Instructions, # 1 each, Refills 11, Tot. Refills 11, Maintenance, E0570 Nebulizer A7003 Neb Disp Set A7014 Neb non-Disp Filter A7005 Neb Non-Disp set A7015 Aerosol Mask A7013 Neb Disp Filter length of need lifetime 99 months for home use dx COPD J44.9, 08/25/23 4:46:00 PM EST, Supply Start Date: 08/25/23 Status: Ordered Medication Dispense Status: Completed Quantity: 1.0 Unit: each Total Allowed Fills: 12 Fills Dispensed: 0 Nebulizer/Compressor See Instructions, # 1 each, Refills 11, Tot. Refills 11, Maintenance, E0570 Nebulizer A7003 Neb Disp Set A7014 Neb non-Disp Filter A7005 Neb Non-Disp set A7015 Aerosol Mask A7013 Neb Disp Filter length of need lifetime 99 months for home use, 05/18/23 3:33:00 PM EST, Supply, 163, cm, 05/18/23 13:10:00 EST, Height, 116.7, kg, 04/22/23 12:06:00 EDT, Dry Weight Start Date: 05/18/23 Status: Ordered Medication Dispense Status: Completed Quantity: 1.0 Unit: each Total Allowed Fills: 12 Fills Dispensed: 0 omeprazole 20 mg oral enteric coated capsule 1 capsule = 20 mg, By Mouth, Daily, # 90 capsule, 0 Refills, Maintenance, 08/17/24 8:27:00 PM EST, EC Capsule, Partial fill upon patient request if the prescription is for a schedule II opioid drug. Start Date: 08/17/24 Status: Ordered Medication Dispense Status: Completed Quantity: 90.0 Unit: capsule Total Allowed Fills: 1 Fills Dispensed: 0 One Touch Verio Lancets One Touch Verio Lancets, See Instructions, # 130 each, Refills 11, Tot. Refills 11, Maintenance, Use 4 times daily to test bood sugar., 07/19/19 3:16:00 PM EST, Compound, 182, cm, 06/11/19 13:15:00 EST, Height, 121.4, kg, 06/10/19 18:35:00 EST, Dry Weight Start Date: 07/19/19 Status: Ordered Medication Dispense Status: Completed Quantity: 130.0 Unit: each Total Allowed Fills: 12 Fills Dispensed: 0 PEG-3350 with Electrolytes (Eqv-GoLYTELY) oral powder for reconstitution 240 mL, By Mouth, Every 10 minutes, until 4 liters are consumed or the rectal effluent is clear, # 4,000 mL, 0 Refills, Maintenance, 03/29/25 2:34:00 PM EDT, REC Powder, [place] - [id number], Partial fill upon patient request if the prescription is for a schedule II opioid drug., 240 mL By Mouth Every 10 minutes,Instr:until 4 liters are consumed or the rectal effluent is clear, 168, cm, 03/29/25 14:02:00 EDT, Height, 140, kg, 09/24/24 14:56:00 EDT, Dry Weight Start Date: 10/3/25 Status: Ordered Medication Dispense Status: Completed Quantity: 4000.0 Unit: mL Total Allowed Fills: 1 Fills Dispensed: 0 Pen Shoup, 31 G x 8 mm BD Ultra Fine III See Instructions, # 100 each, Refills 5, Tot. Refills 5, Maintenance, use three times a day to inject insulin with meals for type 2 Dm, E11.9, 03/08/19 4:56:54 PM EDT, Compound Start Date: 03/08/19 Status: Ordered Medication Dispense Status: Completed Quantity: 100.0 Unit: each Total Allowed Fills: 6 Fills Dispensed: 0 Pen Shoup, 31 G x 8 mm BD Ultra Fine III See Instructions, # 200 each, Refills 3, Tot. Refills 3, Maintenance, use to inject lantus once daily and humalog three times daily with meals, for diabetes mellitus E11.9, 05/17/24 3:48:00 PM EST, Compound, 160, cm, 05/17/24 11:29:00 EST, Height, 130.7, kg, 05/11/24 22:11:00 EST, Dry Weight Start Date: 05/17/24 Status: Ordered Medication Dispense Status: Completed Quantity: 200.0 Unit: each Total Allowed Fills: 4 Fills Dispensed: 0 Re-usable bed pads Re-usable bed pads, See Instructions, # 2 each, Refills 11, Tot. Refills 11, Maintenance, Use for Urinary Incontinence (N39.498), 12/05/18 8:04:06 AM EDT, Compound Start Date: 12/05/18 Status: Ordered Medication Dispense Status: Completed Quantity: 2.0 Unit: each Total Allowed Fills: 12 Fills Dispensed: 0 Indications: Other specified urinary incontinence; Senna 8.6 mg oral tablet 17.2 mg, 2, tablet, By Mouth, Daily, in the evening, Maintenance, 12/07/22 12:32:00 PM EDT, Partial fill upon patient request if the prescription is for a schedule II opioid drug. Start Date: 12/07/22 Status: Ordered Medication Dispense Status: Completed Total Allowed Fills: 1 Fills Dispensed: 0 traZODone 100 mg oral tablet 100 mg, 1, tablet, By Mouth, Daily at bedtime, Refills 0, Maintenance, 08/17/24 8:28:00 PM EST, Partial fill upon patient request if the prescription is for a schedule II opioid drug. Start Date: 08/17/24 Status: Ordered Medication Dispense Status: Completed Total Allowed Fills: 1 Fills Dispensed: 0 Tresiba Subcutaneous Infusion, Daily, 30 units at PM, 0 Refills, Maintenance, 10/08/24 10:48:00 AM EDT, Partial fill upon patient request if the prescription is for a schedule II opioid drug. Start Date: 10/08/24 Status: Ordered Medication Dispense Status: Completed Total Allowed Fills: 1 Fills Dispensed: 0 Trulicity Pen 0.75 mg/0.5 mL subcutaneous solution 0.5 mL = 0.75 mg, Subcutaneous Injection, Every week, Maintenance, 04/21/23 7:19:00 PM EDT, Solution, Partial fill upon patient request if the prescription is for a schedule II opioid drug. Start Date: 04/21/23 Status: Ordered Medication Dispense Status: Completed Total Allowed Fills: 1 Fills Dispensed: 0 Tylenol 325 mg oral tablet 650 mg, 2, tablet, By Mouth, Every 6 hours, PRN, Refills 0, Maintenance, pain/fever >101F, 12/07/22 11:17:00 AM EDT, Partial fill upon patient request if the prescription is for a schedule II opioid drug. Start Date: 12/07/22 Status: Ordered Medication Dispense Status: Completed Total Allowed Fills: 1 Fills Dispensed: 0 Problem List Condition Confirmation Course Effective Dates Status Health St atus Informant CVA (cerebral vascular accident) 1 Confirmed Active CKD (chronic kidney disease), stage III Confirmed Active Cocaine abuse Confirmed Active Colonoscopy 2 Confirmed 07/27/11 Active Essential hypertension Confirmed Active Weakness of right leg Confirmed Active Weakness of both legs Confirmed Active Pneumonia due to COVID-19 virus Confirmed Active Emphysema lung Confirmed Active Severe obesity Confirmed Active Sleep apnea 3 Confirmed Active Diabetes mellitus Confirmed Active Urinary incontinence Confirmed Active Wheezing Confirmed Active 1L hemiplegia 2Repeat 5yrs 3polysomnogram 05/2008 - apnea hypopnea index was 18.7. Oxygen desat to 82%. Snoring. CPAP prescribed. Titration study on jul 16 2008. Social History Social History Type Response Smoking Status Former smokeless tob acco user, quit more than 30 days ago; Type: Cigarettes; Tobacco use times per day: 1 ppd x 40 years; quit in 2014; Total pack years: 40; Started at age: 19; entered on: 09/11/20 Sex Sex Representation Female (finding) Patient Care team information Care Team Personnel Name: Mustapha Louie NP Position: [facility] Outreach Member Role: Lifetime Consulting Physician Address: [address] [place] [address] - Telecom: Name: Shari Santiago RN Position: [facility] RN Member Role: Primary Care Nurse Name: Theresa Aldrich NP Position: [facility] Associate Professional Member Role: Primary Care Nurse Name: Glory Broderick RN Position: [facility] RN Member Role: Primary Care Nurse Name: Clara Caba RN Position: [facility] RN Member Role: Primary Care Nurse Name: Prakash Crokcer RN Position: [facility] RN Member Role: Primary Care Nurse Name: Eryn Lyons RN Position: [facility] Licensed Tax Consultant Member Role: Primary Care Nurse Name: Carrie Colon RN Position: [facility] RN Member Role: Primary Care Nurse Name: Maicol Guzmán RN Position: [facility] RN Member Role: Primary Care Nurse Name: Jan Paz RN Position: [facility] RN Member Role: Primary Care Nurse Name: Marilyn Vergara RN Position: [facility] RN Member Role: Primary Care Nurse Name: Stephanie Gonzalez RN Position: [facility] RN Member Role: Primary Care Nurse Name: Giovany Partida RN Position: [facility] Licensed Tax Consultant Member Role: Primary Care Nurse Name: Oliva Joseph RN Position: [facility] RN Member Role: Primary Care Nurse Name: Serenity Cadet RN Position: [facility] RN Member Role: Primary Care Nurse Name: Shai Montana RN Position: [facility] RN Member Role: Primary Care Nurse Name: Shai Montana RN Position: [facility] RN Member Role: Primary Care Nurse Name: Karol Butler MD Position: Reference Physician Member Role: PCP Address: [address] [place] [address] - Telecom: Name: Roya Cook RN Position: [facility] RN Member Role: Primary Care Nurse Name: Shari Stearns RN Position: [facility] RN Member Role: Primary Care Nurse Name: Sharlene Lee NP Position: [facility] Associate Professional Member Role: Primary Care Nurse Address: [address] [place] [address] [facility] [address] Telecom: Name: Rashida Miles RN Position: [facility] RN Member Role: Primary Care Nurse Name: Agustina Leach RN Position: [facility] OB RN Member Role: Primary Care Nurse Name: Negin Leong RN Position: [facility] RN Member Role: Primary Care Nurse Name: Moe Wolff RN Position: [facility] SN RN Member Role: Primary Care Nurse Name: Greta Garcia RN Position: [facility] RN Member Role: Primary Care Nurse Care Team Related Persons Name: VISUALLY IMPAIRED TEACHERDELIA Name: MARISOL ZAPIEN Name: CARA BHATT Name: JOHN HERNANDEZ Insurance Providers Guarantor name: JOHN BHATT Health Plan Information #: 1 Payer: MEDICARE B Payer Identifier: NA Member Number: [id number] Group Number: NA Subscriber Identifier: NA Relationship to Subscriber: self Coverage Type: NA Coverage Verification Date: NA Telecom: NA Address: NA Health Plan Information #: 2 [facility] [employer] Payer Identifier: NA Member Number: [id number] Group Number: Subscriber Identifier: NA Relationship to Subscriber: self Coverage Type: MEDICAID Coverage Verification Date: NA Telecom: NA Address:
--- OUTSIDE RECORDS SUMMARY | 2025-04-17 23:59 | XMS_ITS | Continuity of Care Document ---
Author Organization [facility] Address [address] [place] [address]- Care Team Providers Care Computer Forensics Analyst Name Role Phone Po Karol SAUER Primary Care Physician [phone] [facility] NBR [id number] Date(s): 03/18/25 - 04/17/[address] [address] Encounter Type: Triage Allergies, Adverse Reactions, Alerts [...] influenza virus vaccine, inactivated 6 05/24/06 Gi chesetr SARS-CoV-2 (COVID-19) mRNA BNT-162b2 vac 11/19/21 Recorded SARS-CoV-2 (COVID-19) mRNA BNT-162b2 vac 04/16/21 Recorded SARS-CoV-2 (COVID-19) mRNA BNT-162b2 vac 07/23/20 Recorded SARS-CoV-2 (COVID-19) mRNA BNT-162b2 vac 07/02/20 Recorded pneumococcal 23-valent vaccine 09/26/20 Recorded pneumococcal 23-valent vaccine 7 04/23/09 Given diphtheria-tetanus toxoids (DT) 8 06/10/10 Given 1Result Comment: [facility] [place] [id number] 2Early/Late Reason: Med Not Available 3Admin Note: VIS GIVEN 01/19/2011 4Admin Note: vis given vis date 02/03/2010 5Result Comment: unit # [id number] 6Admin Note: VIS GIVEN 7Result Comment: lot [...] Refills, Maintenance, 03/15/25 3:43:00 PM EDT, Aerosol, [place] - [address], Partial fill upon patient request if the [...] 3 Refills, Maintenance, 10/16/24 10:19:00 AM EDT, [facility]/pharmacy #[id number], j43.9, 170, cm, 10/09/24 11:05:00 EDT, Height, 140, kg, 09/24/24 14:56:00 EDT, Dry Weight Start Date: 10/16/24 Status: Ordered Medication Dispense Status: Completed Quantity: 150.0 Unit: mL Total Allowed Fills: 4 Fills Dispensed: 0 Indications: Emphysema, unspecified; Anoro Ellipta 62.5 mcg-25 mcg/inh inhalation powder 1 puffs, Inhalation, Daily, # 60 each, 4 Refills, Maintenance, 12/11/24 2:06:00 PM EDT, [facility]-[address], 30, INHALE 1 PUFF BY MOUTH DAILY, [...] 12:17:00 PM EST, Route to Pharmacy Electronically, [facility]-[address], Partial fill upon patient request if the prescription is for a schedule II opioid drug., 160, cm, 05/17/2415:48:00 EST, Height, 130.7, kg, 05/11/24 22:11:00 EST, Dry Weight Start Date: 05/23/24 Status: Ordered Medication Dispense Status: Completed Quantity: 180.0 Unit: tablet Total Allowed Fills: 4 Fills Dispensed: 0 change DME company from [employer] to [employer] change DME company from [employer] to [employer], See Instructions, # 1 each, Refills 0, Tot. Refills 0, Maintenance, SPO2? HR? O2? Activity ??87 82 RA Rest 84 94RA Moving side to side 95 85 2L [...] Refills, Maintenance, 09/27/19 10:48:00 AM EDT, Tablet, [facility]/pharmacy #[id number], 182, cm, 06/11/19 13:15:00 EST, Height, [...] Refills, Maintenance, 05/17/24 3:47:00 PM EST, Solution, [facility], Partial fill upon patient request if [...] 12:53:00 PM EDT, Route to Pharmacy Electronically, [facility]-[id number], Partial fill upon patient request if the [...] Maintenance, 12/10/22 1:32:00 PM EDT, REC Powder, [facility]/pharmacy #2339, 17 Gm By Mouth Daily,Instr:dissolve in [...] Maintenance, 03/29/25 2:34:00 PM EDT, REC Powder, [place] - [address], Partial fill upon patient request if the prescription is for a schedule II opioid drug., 240 mL By Mouth Every 10 minutes,Instr:until 4 liters are consumed or the rectal effluent is clear, 168, cm, 03/29/25 14:02:00 EDT, Height, 140, kg, 09/24/24 14:56:00 EDT, Dry Weight Start Date: 03/29/25 Status: Ordered Medication Dispense Status: Completed Quantity: 4000.0 Unit: mL Total Allowed Fills: 1 Fills Dispensed: 0 Pen Sheldon, 31 G x 8 mm BD Ultra Fine III See Instructions, # 100 each, Refills 5, Tot. Refills 5, Maintenance, use three times a day to inject insulin with meals for type 2 Dm, E11.9, 03/08/19 4:56:54 PM EDT, Compound Start Date: 03/08/19 Status: Ordered Medication Dispense Status: Completed Quantity: 100.0 Unit: each Total Allowed Fills: 6 Fills Dispensed: 0 Pen Sheldon, 31 G x 8 mm BD Ultra [...] Care team information Care Team Personnel Name: Jacy AYALA, Mustapha Stockton Position: [facility] Outreach Member Role: Lifetime Consulting Physician Address: [address], [place] - Telecom: Name: Shari Santiago RN Position: [facility] RN Member Role: Primary Care Nurse Name: Theresa Aldrich NP Position: [facility] Associate Professional Member Role: Primary Care Nurse Name: Glory Broderick RN Position: [facility] RN Member Role: Primary Care Nurse Name: Clara Caba RN Position: [facility] RN Member Role: Primary Care Nurse Name: Prakash Crocker RN Position: [facility] RN Member Role: Primary Care Nurse Name: Eryn Lyons RN Position: [facility] Steel Finisher Member Role: Primary Care Nurse Name: Carrie Colon RN Position: [facility] RN Member Role: Primary Care Nurse Name: Maicol Guzmán RN Position: [facility] RN Member Role: Primary Care Nurse Name: Jan Paz RN Position: [facility] RN Member Role: Primary Care Nurse Name: Marilyn Vergara RN Position: [facility] RN Member Role: Primary Care Nurse Name: Stephanie Gonzalez RN Position: [facility] RN Member Role: Primary Care Nurse Name: Giovany Partida RN Position: [facility] Steel Finisher Member Role: Primary Care Nurse Name: Oliva Joseph RN Position: [facility] RN Member Role: Primary Care Nurse Name: Serenity Cadet RN Position: [facility] RN Member Role: Primary Care Nurse Name: Shai Montana RN Position: [facility] RN Member Role: Primary Care Nurse Name: Shai Montana RN Position: [facility] RN Member Role: Primary Care Nurse Name: Karol Butler MD Position: Reference Physician Member Role: PCP Address: [address] [place] [address] - Telecom: Name: Roya Cook RN Position: [facility] RN Member Role: Primary Care Nurse Name: Shari Stearns RN Position: [facility] RN Member Role: Primary Care Nurse Name: Sharlene Lee NP Position: [facility] Associate Professional Member Role: Primary Care Nurse Address: [address] [facility] [place] [id number]- Telecom: Name: Rashida Miles RN Position: [facility] RN Member Role: Primary Care Nurse Name: Agustina Leach RN Position: [facility] OB RN Member Role: Primary Care Nurse Name: Negin Leong RN Position: [facility] RN Member Role: Primary Care Nurse Name: Moe Wolff RN Position: [facility] SN RN Member Role: Primary Care Nurse Name: Greta Garcia RN Position: [facility] RN Member Role: Primary Care Nurse Care Team Related Persons Name: RESEARCH WORKER KITCHENDELIA Name: MARISOL ZAPIEN Name: CARA BHATT Name: JOHN HERNANDEZ Insurance Providers Guarantor name: JOHN BHATT Health Plan Information #: 1 Payer: MEDICARE B Payer Identifier: Member Number: [id number] Group Number: Subscriber Identifier: Relationship to Subscriber: self Coverage Type: NA Coverage Verification Date: NA Telecom: NA Address: NA Health Plan Information #: 2 Payer: [employer] Payer Identifier: Member Number: [id number] Group Number: Subscriber Identifier: Relationship to Subscriber: self Coverage Type: MEDICAID Coverage Verification Date: NA Telecom: NA Address:
--- OUTSIDE RECORDS SUMMARY | 2025-04-19 18:19 | XMS_ITS | Continuity of Care Document ---
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 Name Role Phone Po Karol SAUER Primary Care Physician [phone] [id number] Date(s): 04/19/25 - 04/19/[address] [address]- Encounter Diagnosis Hypoxia(Final) - 04/19/25 History of obstructive sleep apnea(Final) - 04/19/25 History of emphysema(Final) - 04/19/25 Discharge Disposition: A-D/C Home Attending Physician: Sandi Patel MD Admitting Physician: Sandi Patel MD Referring Physician: Not on Staff, Referring MD Encounter Type: Disch ES Allergies, Adverse Reactions, Alerts Substance Criticality Severity Reaction Reaction Severity Status lisinopril cough Active Tylox ringing in ears Acti ve oxyCODONE Active Lactose Active Immunizations Given and Recorded Vaccine Date [...] toxoids (DT) 8 06/10/10 Given 1Result Comment: [facility] [id number] 2Early/Late Reason: Med Not Available 3Admin Note: VIS GIVEN 01/19/2011 4Admin Note: vis given vis date 02/03/2010 5Result Comment: unit # [id number] 6Admin Note: VIS GIVEN 7Result Comment: lot [...] Refills, Maintenance, 03/15/25 3:43:00 PM EDT, Aerosol, [place] - [address], Partial fill upon patient request if the [...] 3 Refills, Maintenance, 10/16/24 10:19:00 AM EDT, [facility]/pharmacy #2566, j43.9, 170, cm, 10/09/24 11:05:00 EDT, Height, 140, kg, 09/24/24 14:56:00 EDT, Dry Weight Start Date: 10/16/24 Status: Ordered Medication Dispense Status: Completed Quantity: 150.0 Unit: mL Total Allowed Fills: 4 Fills Dispensed: 0 Indications: Emphysema, unspecified; Anoro Ellipta 62.5 mcg-25 mcg/inh inhalation powder 1 puffs, Inhalation, Daily, # 60 each, 4 Refills, Maintenance, 12/11/24 2:06:00 PM EDT, [facility]-[address], 30, INHALE 1 PUFF BY MOUTH DAILY, [...] 12:17:00 PM EST, Route to Pharmacy Electronically, [facility] [place]-[address], Partial fill upon patient request if the prescription is for a schedule II opioid drug., 160, cm, 05/17/2415:48:00 EST, Height, 130.7, kg, 05/11/24 22:11:00 EST, Dry Weight Start Date: 05/23/24 Status: Ordered Medication Dispense Status: Completed Quantity: 180.0 Unit: tablet Total Allowed Fills: 4 Fills Dispensed: 0 change DME company from [facility] to [facility] [place] change DME company from [facility] to [facility] [place], See Instructions, # 1 each, Refills 0, Tot. Refills 0, Maintenance, SPO2? HR? O2? Activity ??87 82 RA Rest 84 94RA Moving side to side 95 85 2L Rest 93 91 2L Moving side to side refill 02 tanks Patient did not want to perform arm exercises. commendations:?? Patient needs 2L continuously. Sp02 84% Dx Pneumonia,Hypoxia ??, 07/13/23 3:36:00 PM EST, Supply Start [...] Refills, Maintenance, 09/27/19 10:48:00 AM EDT, Tablet, [facility]/pharmacy #1026, 182, cm, 06/11/19 13:15:00 EST, [...] Refills, Maintenance, 05/17/24 3:47:00 PM EST, Solution, [facility], Partial fill upon patient request if [...] 12:53:00 PM EDT, Route to Pharmacy Electronically, [facility] [place]-[address], Partial fill upon patient request if the [...] Maintenance, 12/10/22 1:32:00 PM EDT, REC Powder, [facility]/pharmacy #2339, 17 Gm By Mouth Daily,Instr:dissolve [...] Maintenance, 03/29/25 2:34:00 PM EDT, REC Powder, [place] - [address], Partial fill upon patient request if the [...] Allowed Fills: 1 Fills Dispensed: 0 Pen Winnett, 31 G x 8 mm BD Ultra Fine III See Instructions, # 100 each, Refills 5, Tot. Refills 5, Maintenance, use three times a day to inject insulin with meals for type 2 Dm, E11.9, 03/08/19 4:56:54 PM EDT, Compound Start Date: 03/08/19 Status: Ordered Medication Dispense Status: Completed Quantity: 100.0 Unit: each Total Allowed Fills: 6 Fills Dispensed: 0 Pen Winnett, 31 G x 8 mm BD Ultra [...] Total Allowed Fills: 1 Fills Dispensed: 0 Mental Status Mental Status Assessment Assessment Assessment Component Result Effecti ve Date Tabitha coma score total 15 Problem List Condition Confirmation Course Effective Dates [...] prescribed. Titration study on jul 16 2008. Results Radiology Reports * Exam Date Time Procedure Performing Provider Status 04/19/25 3:20 PM Chest 2 Views Frontal and Lat Auth (Verified) Notes: (Chest 2 Views Frontal and Lat) Reason For Exam: Shortness of Breath RESULT: Chest 2 Views Frontal and Lat Chest 2 Views Frontal and Lat HX OF PRESENT ILLNESS: From care home. Staff sts she refused BiPap last night. O2 sat this morninglow to mid 80s. Difficulty recovering O2 sat with 2lpm NC. Iproved for EMS to her baseline which is93-94% on 1lpm NC.; Reason: Shortness of Breath; Clinical Question(s): CHF COMPARISON: Multiple priors, most recent from earlier today at 1:05 PM. FINDINGS: LINES AND TUBES: None. LUNGS AND PLEURA: Left basilar atelectasis with trace pleural effusion.. Normal pulmonary vascularity. No pneumothorax. HEART, MEDIASTINUM AND PARAM: Heart is normal in size. Normal mediastinal and hilar contour. BONES AND SOFT TISSUES: No acute abnormality. IMPRESSION: Left basilar atelectasis with trace pleural effusion. I have personally reviewed the images and I agree with this report. WSN: [id number] Ordering Physician: Osmany Wilde Dictated By: Joann Wall MD Dictated Date/Time: 04/19/25 3:46 pm Reviewed By: Jose Garvin MD Signed By: Jose Garvin MD Signed Date/Time: 04/19/25 3:51 pm Transcribed By: MINH Transcribed Date/Time: 04/19/25 3:26 pm * Exam Date Time Procedure Performing Provider Status 04/19/25 1:13 PM Chest Portable Auth (Enoc ified) Notes: (Chest Portable) Reason For Exam: Shortness of Breath RESULT: Chest Portable Chest Portable Hx of Present Illness: From care home. Staff sts she refused BiPap last night. O2 sat this morninglow to mid 80s. Difficulty recovering O2 sat with 2lpm NC. Improved for EMS to her baseline which is 93-94% on 1lpm NC.; Reason: Shortness of Breath; Clinical Question(s): CHF COMPARISON: 09/06/2024. Study is limited by patient's body habitus. In addition the right breast obscures a portion of the chest. FINDINGS: LINES AND TUBES: None. LUNGS AND PLEURA: There is some fullness of the apical vascularity consistent with mild pulmonary edema. There is elevation of the right hemidiaphragm. I cannot exclude the presence of a small left pleural effusion. No pneumothorax. HEART, MEDIASTINUM AND PARAM: Heart size appears slightly enlarged on this AP film. Aorta is tortuous and unfolded. BONES AND SOFT TISSUES: No acute abnormality. IMPRESSION: Mild bilateral pulmonary edema on this study limited by a poor inspiration and patient's body habitus. When possible I would obtain a repeat set of films with better inspiration. ] WSN: [id number] Ordering Physician: Osmany Wilde Dictated By: Bryant Rudd MD Dictated Date/Time: 04/19/25 1:24 pm Reviewed By: Bryant Rudd MD Signed By: Bryant Rudd MD Signed Date/Time: 04/19/25 1:24 pm Transcribed By: MINH Transcribed Date/Time: 04/19/25 1:20 pm Vital Signs Most recent to oldest [Reference Range]: 1 2 3 Oxygen Saturation [94-100 %] 98 % (04/19/25 6:12 PM) 98 % (04/19/25 1:14 PM) 100 % (04/19/25 11:55 AM) Pulse Rate [55-90 bpm] 66 bpm (04/19/25 6:12 PM) 62 bpm (04/19/25 1:14 PM) 67 bpm (04/19/25 11:55 AM) Blood Pressure [90-138/55-84 mm Hg] 165/67mm Hg *H* (04/19/25 6:12 PM) 164/81mm Hg *H* (04/19/25 1:14 PM) 161/80mm Hg *H* (04/19/25 11:55 AM) Respiratory Rate [16-30 br/min] 17 br/min (04/19/25 6:12 PM) 18 br/min (04/19/25 1:14 PM) 20 br/min (04/19/25 11:55 AM) Temperature [96.8-100.4 DegF] 98.3 DegF (04/19/25 11:55 AM) Liters per Minute 2 L/min (04/19/25 6:12 PM) 2 L/min (04/19/25 1:14 PM) 2 L/min (04/19/25 11:55 AM) Mode of Delivery (Oxygen) Nasal cannula (04/19/25 6:12 PM) Nasal cannula (04/19/25 1:14 PM) Nasal cannula (04/19/25 11:55 AM) Temperature Route Oral (04/19/25 11:55 AM) Social History Social History Type Response Smoking Status Former smokeless tob acco user, quit more than 30 days ago; Type: Cigarettes; Tobacco use times per day: 1 ppd x 40 years; quit in 2014; Total pack years: 40; Started at age: 19; entered on: 09/11/20 Sex Sex Representation Female (finding) Status Not EKG study * Event Display: ECG 12-Lead Authored Date: Please click on pdf link to open report * Event Display: ECG 12-Lead Authored Date: Ventricular Rate: 64 BPM Atrial Rate: 64 BPM P-R Interval: 140 ms QRS Duration: 80 ms Q-T Interval: 472 ms QTC Calculation(Bazett): 486 ms P Pollock: 54 degrees R Pollock: 8 degrees T Pollock: 10 degrees Sinus rhythm with Premature atrial complexes Otherwise normal ECG When compared with ECG of 29-Mar-2025 14:42, Premature atrial complexes are now Present Confirmed by Zachery Campos ([id number]) on 04/19/2025 12:36:51 PM Grand Chain: Zachery Campos Patient Care team information Care Team Personnel Name: Mustapha Louie NP Position: [facility] Outreach Member Role: Lifetime Consulting Physician Address: [address] [place] [address] Telecom: Name: Shari Santiago RN Position: [facility] RN Member Role: Primary Care Nurse Name: Theresa Aldrich NP Position: [facility] Associate Professional Member Role: Primary Care Nurse Name: Glory Broderick RN Position: [facility] RN Member Role: Primary Care Nurse Name: Clara Caba RN Position: [facility] RN Member Role: Primary Care Nurse Name: Prakash Crocker RN Position: [facility] RN Member Role: Primary Care Nurse Name: Eryn Lyons RN Position: [facility] Inspector Soldering Member Role: Primary Care Nurse Name: Carrie Colon RN Position: [facility] RN Member Role: Primary Care Nurse Name: Maicol Guzmán RN Position: [facility] RN Member Role: Primary Care Nurse Name: Jan Paz RN Position: [facility] RN Member Role: Primary Care Nurse Name: Marilyn Vergara RN Position: [facility] RN Member Role: Primary Care Nurse Name: Stephanie Gonzalez RN Position: [facility] RN Member Role: Primary Care Nurse Name: Giovany Partida RN Position: [facility] Inspector Soldering Member Role: Primary Care Nurse Name: Oliva Joseph RN Position: [facility] RN Member Role: Primary Care Nurse Name: Serenity Cadet RN Position: [facility] RN Member Role: Primary Care Nurse Name: Shai Montana RN Position: [facility] RN Member Role: Primary Care Nurse Name: Shai Montana RN Position: [facility] RN Member Role: Primary Care Nurse Name: Karol Butler MD Position: Reference Physician Member Role: PCP Address: [address] [place] [address]- Telecom: Name: Roya Cook RN Position: [facility] RN Member Role: Primary Care Nurse Name: Shari Stearns RN Position: [facility] RN Member Role: Primary Care Nurse Name: Sharlene Lee NP Position: [facility] Associate Professional Member Role: Primary Care Nurse Address: [address] [place] [address] [place] [address]- Telecom: Name: Rashida Miles RN Position: [facility] RN Member Role: Primary Care Nurse Name: Agustina Leach RN Position: [facility] OB RN Member Role: Primary Care Nurse Name: Negin Leong RN Position: [facility] RN Member Role: Primary Care Nurse Name: Moe Wolff RN Position: [facility] SN RN Member Role: Primary Care Nurse Name: Greta Garcia RN Position: [facility] RN Member Role: Primary Care Nurse Care Team Related Persons Name: RADIATION PHYSICISTDELIA Name: MARISOL ZAPIEN Name: CARA BHATT Name: JOHN HERNANDEZ Insurance Providers Guarantor name: JOHN BHATT Health Plan Information #: 1 Payer: MEDICARE B Payer Identifier: NA Member Number: [id number] Group Number: NA Subscriber Identifier: [id number] Relationship to Subscriber: self Coverage Type: NA Coverage Verification Date: NA Telecom: NA Address: Health Plan Information #: 2 [facility] Payer Identifier: NA Member Number: [id number] Group Number: NA Subscriber Identifier: [id number] Relationship to Subscriber: self Coverage Type: MEDICAID Coverage Verification Date: NA Telecom: NA Address:
--- NOTE | 2025-04-23 13:52 | MHC.OFFVIS ---
Intake Visit Reasons: New Pt - left knee pain Intake Note: Ignacia is a 70 year old female who presents today as a new patient for a evaluation of her left knee pain. She presents with a Nurse named Mickey and her medical assisting program director Sydnie Estes. She is bed/wheel chair bound. Patient reports she fell off the lift while being transported from bed to wheelchair. The injury happened about 4 months ago. She states that her pain is on the lateral aspect of the knee. Patient notices that her pain is worse when she moves the knee . She states she is not taking anything for pain. Denies numbness and tingling. IMPRESSION: Mild osteoarthritis. Osteopenia. Possible ossified intra-articular body in the posterior medial joint compartment. MCL ossification is most consistent with changes related to a remote sprain. Allergies lisinopril Allergy (Intermediate, Verified 04/23/25 14:01) Unknown oxycodone Allergy (Intermediate, Verified 04/23/25 14:) Unknown HPI HPI New Pt - left knee pain: Details: Ms. Abdul is a 70-year-old female who presents to the office today accompanied by her [facility] members Mickey, and Sydnie Estes who is the medical assisting program director. They state that the patient is primarily wheelchair-bound and was being transported into a van. The wheelchair ended up breaking and the patient fell landing onto the left knee. Injury happened around 4 months ago and then patient has been complaining of knee pain ever since. She was evaluated in the emergency department where x-rays were negative for any acute fracture or dislocation. [facility] Medical History Afib Left knee pain Surgical History History of cholecystectomy History of hysterectomy Social History Housing: Other (residential) Unable to assess alcohol history related to: Refusing to respond Alcohol intake: never Patient Tobacco Use Status: Never used Tobacco e-Cigarette/Vaping Use: Never Used Second Hand Smoke Exposure: No service: No Current occupational status: disabled Cognitive needs: Yes (wheelchair) Hearing needs: No Vision needs: Yes (Reading Glasses) Review of Systems Const All systems reviewed & are unremarkable except as noted in HPI and below Physical Exam Const General: cooperative, healthy appearing and no acute distress Resp Effort & Inspection: normal respiratory effort and able to speak in complete sentences Extrem Other: Left knee normal to inspection. No ecchymosis, erythema or joint effusion. Tenderness to palpation medial joint line. Patient is wheelchair-bound and did not want to participate in active range of motion. NVI. Psych Appearance: grossly normal Mental Status: mental status grossly normal Attitude: cooperative Office Procedures AMB Joint Injection/Aspiration Joint Injection/Aspiration Primary Site: left knee Prep: site was prepped using aseptic technique, ethochloride spray was applied and injection warnings given Injected: 40 mg of, with 3 mL of, 1% plain lidocaine, 0.25% bupivacaine, in the joint and decadron Approach Used: anterolateral Procedure: The patient tolerated the procedure well, but had some pain with the injection and there was some relief with the local anesthesia Coding 57112 - Large joint Procedure code (CPT) selection complete Assessment & Plan Assessment & Plan (1) Osteoarthritis of left knee: Code(s): M17.12 - Unilateral primary osteoarthritis, left knee Category: Medical Plan The patient was offered a cortisone injection in the left knee. The patient was explained the risks, benefits, and alternatives to receiving this injection. After receiving consent for the injection, the patient had the procedure done while in the office today. The patient tolerated the procedure well with no complications. Due to the patient?s history of diabetes, they were instructed to monitor their blood glucose level. The patient was informed that they could see a rise in their numbers and if the numbers became too high, they were instructed to call their PCP. The patient was also informed that they could have facial flushing as a side effect of the injection, but this will pass. Follow-up will be PRN, or sooner if needed X-rays of the left knee which were obtained while in the Ed on 12/13/24 revealed arthritic changes. Orders: Orders XR knee LT 2V Today Rebeca Cornejo PA-C M25.569 - Pain in unspecified knee Medications: Discontinued insulin lispro (Humalog KwikPen (U-100) Insulin) Discontinued Reason: Insurance Denied subcutaneously 3 times a day; Less than 70 give food, 71-150 no coverage, 151-230 2 units, 231 to 280 4 units, 281-330 6 units 331-380 8 units more than 381 10 units - MAXimum units per day is 30 u 15 mL 12RF Karol Butler MD Coding Level of Care Code New Pt Level 3 (90699) Diagnoses Osteoarthritis of left knee M17.12 CPT Codes Coding - 66479 Large joint: 65915 - Large joint ([id number])
--- OUTSIDE RECORDS SUMMARY | 2025-04-23 17:37 | XMS_ITS | Clinical Summary ---
Author Organization [address] [facility] Address [address] [place] [address] Phone Care Team Providers Care Tonger Name Role Phone Bettie Espinal MD Primary Care Provider [phone] Allergies Active Allergy Reactions Criticality Noted Date Comments Lisinopril 12/12/2024 Oxycodone 12/12/2024 Medications No known medications Encounters Date Type Department Care Team Description 04/11/2025 2:00 PM EDT Office Visit Orthopedic Surgery [facility] [address] [facility] [address] [place] [phone] Ismael Montaño DPM Controlled type 2 diabetes mellitus with diabetic polyneuropathy, without long-term current use of insulin (CMS/[facility] V24, CMS/HCC V28) (Primary Dx); PVD (peripheral vascular disease) ([facility] V24); Arthritis of both feet; Localized edema; Neuropathy; Lymphedema; Onychomycosis; Callus from Last 3 Months Social History Tobacco Use Types Packs/Day Years Used Date Smoking Tobacco: Never Assessed Comments Unknown Sex and Gender Information Value Date Recorded Sex Assigned at Not on file Legal Sex Female 6:08 AM EST Gender Identity Not on file Sexual Orientation Not on file Plan of Treatment Health Maintenance Due Date Last Done Comments Breast Cancer Screening 1955 Colorectal Cancer Screening: Colonoscopy 1955 Diabetes: Annual GFR (Glomerular Filtration Rate) 1954 Diabetes: Annual Foot Exam 01/16/1964 Diabetes: Annual Retina Eye Exam 01/16/1964 Hepatitis A Vaccines (1 of 2 - Risk 2-dose series) 1973 RSV Immunization Adult Patients (1 - Risk 50-74 years 1-dose series) 01/16/2004 Zoster Vaccines (1 of 2) 01/16/2004 DTaP,Tdap,and Td Vaccines (2 - Tdap) 06/10/2020 06/10/2010 Pneumococcal Vaccine: 50+ Years (2 of 2 - PCV) 09/26/2021 09/26/2020, 04/23/2009 Cholesterol Screening (Lipid Panel) 05/30/2022 Falls Risk Assessment 05/30/2022 Hepatitis C Screening 05/30/2022 Medicare Annual Wellness Visit 05/30/2022 Osteoporosis Screening (Bone Density Screening) 05/30/2022 Social Influencers of Health Screening 05/30/2022 Depression Screening 06/27/2024 Diabetes: Annual Urine Albumin-Creatinine Ratio (uACR) 12/13/2024 Diabetes: Blood Sugar Control Test (HGBA1C) 12/13/2024 Hypertension/CHF/CAD Annual BMP Blood Test 12/13/2024 COVID-19 Vaccine ( season) 2025 11/19/2021, 04/16/2021, 07/23/2020, Additional history exists Influenza Vaccine (#1) 2025 , 05/18/2023, 04/07/2021, [...] Insurance MEDICARE MEDICAID - [place] Care Teams Tonger Relationship Specialty Start Date End Date Bettie Espinal MD [address] [place] [phone] PCP - General Internal Medicine 08/20/24
== END 2025-04-23 14:18 | disposition home or self-care (01) ==
LOC: HO.HOS 13:36
PROVIDERS: PCP Internal Medicine; Visit Provider Physician Assistant
DX: M17.12 Unilateral primary osteoarthritis, left knee (principal)
CPT/HCPCS: 20610; 99203